=== PATIENT | female | born 1935 | race Caucasian/White ===

== ENCOUNTER 2016-04-13 18:10 | Emergency (ER) | payer MEDICARE ==
[~2016-04-13] VITALS: Ht 170.2 cm; Wt 79.5 kg
[~2016-04-13 18:10] MED LIST: ASPI81TA82 PO; FISH1000 PO; FOLI1TAB PO; IBAN150T3 PO; IMIT100T PO; MACR100C PO; METH2.5 PO; NAPR-576 PO; NEXI40CA PO; PRIN20TA2 PO; ROSU20 PO; SMZ-800T PO; VENL75TA91 PO; ZOFR4TAB3 SL
[2016-04-13 18:27] VITALS: BP 123/57; PULSE 86; RESP 18; TEMP 99; O2SAT 96
[2016-04-13] MEDS ORDERED: TRAM50TA PO (18:42)
[2016-04-13] MEDS ORDERED: MELO-1 PO (18:42)
[2016-04-13] MEDS ORDERED: DULO1CAP2 PO (18:42)
[2016-04-13] MEDS ORDERED: FOLI5CAP PO (18:42)
[2016-04-13] MEDS ORDERED: ASPI1TAB69 PO (18:42)
[2016-04-13] MEDS ORDERED: LISI-515 PO (18:42)
[2016-04-13] MEDS ORDERED: CLON0.5T PO (18:42)
[2016-04-13] MEDS ORDERED: METH2.5T PO (18:42)
[2016-04-13] MEDS ORDERED: SUMA100T2 PO (18:42)
[2016-04-13] MEDS ORDERED: HYDR-3133 PO (18:42)
[2016-04-13] MEDS ORDERED: PRAM0.25 PO (18:42)
[2016-04-13] MEDS ORDERED: SILV1CRE80 TOPICAL (19:05)
[2016-04-13] MEDS ORDERED: CEPH-460 PO (19:05)
--- NOTE | 2016-04-13 19:09 | PD ---
HPI Chief Complaint: Skin Problem Time Seen by Provider: 19:00 Travel History International Travel<30 days: No Contact w/Intl Traveler<30days: No Traveled to known affect area: No History of Present Illness HPI 81-year-old female with history of rheumatoid arthritis on methotrexate presents for evaluation of her chronic rash. Symptoms initially started 6 months ago on her upper back and forearms. She was seen by her primary care physician prescribed Bactroban. Symptoms persisted and 3 year 4 months ago she saw a top installer who prescribed her sober sulfadiazine. She has been using the silver sulfadiazine but symptoms have persisted which prompted evaluation. The rash is pruritic as well as uncomfortable. She has been scratching at it quite a bit and caused a large amount of excoriation of the skin on the forearms. She has not follow-up with her top installer yet. She has no other complaints at this time. PFSH Past Medical History Arthritis: Yes (RHEUMATOID) Blood Disorders: No Heart Rhythm Problems: No Cancer: No Cardiovascular Problems: Yes High Cholesterol: Yes Chest Pain: No Congestive Heart Failure: No Diminished Hearing: No Endocrine: No GERD: Yes Genitourinary: Yes Hepatitis: No Hiatal Hernia: No Hypertension: Yes Immune Disorder: Yes Musculoskeletal: Yes Neurologic: No Psychiatric: No Reproductive: No Respiratory: No Myocardial Infarction: No Ulcer: No Menopausal: Yes Past Surgical History Appendectomy: No Cardiac Surgery: No Cholecystectomy: No Endocrine Surgery: No Eye Surgery: No Genitourinary Surgery: No Gynecologic Surgery: Yes (PARTIAL HYSTERECTOMY ) Hysterectomy: Yes Neurologic Surgery: Yes (BACK SURGERY) Oral Surgery: Yes (TONSILECTOMY) Thoracic Surgery: No Tonsillectomy: Yes Social History Alcohol Use: No Tobacco Use: No Substance Use: No Allergies-Medications (Allergen,Severity, Reaction): Coded Allergies: No Known Allergies (Verified , 04/13/16) Reported Meds & Prescriptions Reported Meds & Active Scripts Active Silver Sulfadiazine Topical (Silver Sulfadiazine) 1 % Cream 1 Applic TOPICAL DAILY 10 Days Keflex (Cephalexin) 500 Mg Cap 500 Mg PO Q6H 10 Days Reported Aspirin 81 Mg Tabdr 81 Mg PO DAILY Sumatriptan (Sumatriptan Succinate) 100 Mg Tab 100 Mg PO ONCE PRN If a satisfactory response has not been obtained at 2 hours, a second dose may be administered Pramipexole (Pramipexole Dihydrochloride) 0.25 Mg Tab 0.25 Mg PO DAILY Meloxicam 15 Mg Tab 15 Mg PO DAILY Duloxetine DR (Duloxetine HCl) 30 Mg Capdr 30 Mg PO BID Tramadol (Tramadol HCl) 50 Mg Tab 50 Mg PO DAILY Folic Acid 5 Mg Cap 5 Mg PO DAILY Methotrexate 2.5 Mg Tab 7.5 Mg PO Q7D Clonazepam 0.5 Mg Tab 0.5 Mg PO BID PRN Hydroxyzine HCl 25 Mg Tab 25 Mg PO TID PRN Lisinopril 20 Mg Tab 20 Mg PO DAILY Review of Systems General / Constitutional: No: Fever, Chills Skin: Positive Rash, Positive Itching, Positive Other (redness, excoriation) Physical Exam Narrative GENERAL: Well-nourished female in no acute distress SKIN: Warm and dry. Skin excoriation noted on the dorsal forearms, upper back bilaterally. There is some honey-colored crusting impetigo formation on some of the areas of excoriation. Mild cellulitic changes. No papules, no pustules , no hives, no plaque lesions HEAD: Atraumatic. Normocephalic. EYES: Pupils equal and round. No scleral icterus. No injection or drainage. ENT: No nasal bleeding or discharge. Mucous membranes pink and moist. NECK: Trachea midline. No JVD. CARDIOVASCULAR: Regular rate and rhythm. No murmur appreciated. RESPIRATORY: No accessory muscle use. Clear to auscultation. Breath sounds equal bilaterally. Data Data Last Documented VS Vital Signs Date Time Temp Pulse Resp B/P Pulse Ox O2 Delivery O2 Flow Rate FiO2 04/13/16 18:27 99.0 86 18 123/57 96 MDM Medical Decision Making Medical Screen Exam Complete: Yes Emergency Medical Condition: Yes Medical Record Reviewed: Yes Differential Diagnosis Atopic dermatitis, psoriasis, contact dermatitis, impetigo, cellulitis Narrative Course 81-year-old female presents with chronic rash to the forearms and upper back, and improved despite the use of silver sulfadiazine cream. The rash is quite pruritic and on examination she has essentially skin excoriation with impetigo formation and mild cellulitic changes. Plan is to treat the patient with Keflex orally and topical silver sulfadiazine cream. Instructed her on the importance of not scratching at the rash and the follow up with her top installer likely for biopsy for definitive diagnosis. Diagnosis Primary Impression: Impetigo Additional Impression: Cellulitis Qualified Code: L03.119 - Cellulitis of upper extremity, unspecified laterality Additional Instructions: Medication as prescribed. Don't scratch at the rash. Follow up with a top installer for definitive diagnosis. Return for any emergent medical conditions. Med/Other Pt SpecificInfo: Prescription(s) given Scripts Silver Sulfadiazine Topical 1 % Cream1 Applic TOPICAL DAILY 10 Days Ref 0 Prov:Sorin Cespedes MD 04/13/16 Cephalexin (Keflex)500 Mg Gwu700 Mg PO Q6H 10 Days Ref 0 Prov:Sorin Cespedes MD 04/13/16 Disposition: 01 DISCHARGE HOME Condition: Stable Ronald Vázquez Apr 13, 2016 19:09
== END 2016-04-13 19:48 | disposition home or self-care (01) ==
LOC: PHEFT 18:10
DX: L01.00 Impetigo, unspecified (principal); L03.119 Cellulitis of unspecified part of limb
CPT/HCPCS: 99282

== ENCOUNTER → 2016-05-13 | Outpatient (CLI) | payer MEDICARE ==
[~2016-05-13] MED LIST changes: +ASPI1TAB69 PO; -ASPI81TA82 PO; +CEPH-460 PO; +CLON0.5T PO; +DULO1CAP2 PO; -FISH1000 PO; -FOLI1TAB PO; +FOLI5CAP PO; +HYDR-3133 PO; -IBAN150T3 PO; -IMIT100T PO; +LISI-515 PO; -MACR100C PO; +MELO-1 PO; -METH2.5 PO; +METH2.5T PO; -NAPR-576 PO; -NEXI40CA PO; +PRAM0.25 PO; -PRIN20TA2 PO; -ROSU20 PO; +SILV1CRE80 TOPICAL; -SMZ-800T PO; +SUMA100T2 PO; +TRAM50TA PO; -VENL75TA91 PO; -ZOFR4TAB3 SL
[2016-05-13 15:52] LABS: HEMATOCRIT 31.9 % (35.0-46.0); MEAN CORPUSCULAR HEMOGLOBIN 30.2 PG (27.0-34.0); MEAN CORPUSCULAR HGB CONC 33.2 % (32.0-36.0); PLATELET COUNT 145 TH/MM3 (150-450); RED BLOOD COUNT 3.51 MIL/MM3 (4.00-5.30); RED CELL DISTRIBUTION WIDTH 13.9 % (11.6-17.2); REVIEW FLAG FINAL
[2016-05-13 16:17] LABS: WESTERGREN SEDIMENTATION RATE 35 mm/hr (0-30)
[2016-05-13 16:18] LABS: RHEUMATOID FACTOR TRIGGER 19.6 IU/ML (0.0-14.9)
[2016-05-13 16:33] LABS: ALKALINE PHOSPHATASE 69 U/L (45-117); ALT (GPT) 23 U/L (10-53); ANION GAP 7 MEQ/L (5-15); AST (GOT) 20 U/L (15-37); BICARBONATE 26.6 MEQ/L (21.0-32.0); BLOOD UREA NITROGEN 17 MG/DL (7-18); CHLORIDE 108 MEQ/L (98-107); GLOMERULAR FILTRATION RATE 72 ML/MIN (>89); POTASSIUM 4.1 MEQ/L (3.5-5.1); SODIUM (NA) 142 MEQ/L (136-145); TOTAL BILIRUBIN ADULT 0.4 MG/DL (0.2-1.0)
== END ==
LOC: PLAB 12:39
PROVIDERS: ATTEND Internal Medicine Rheumatology
DX: E80.20 Unspecified porphyria (principal); M06.09 Rheumatoid arthritis without rheumatoid factor, multiple sites
CPT/HCPCS: 36415; 80053; 85027; 85652; 86430

== ENCOUNTER → 2016-06-10 | Outpatient (CLI) | payer MEDICARE ==
[2016-06-13 23:53] LABS: PORPHOBILINOGEN SCREEN (QUAL) 1.1 (<2.0)
== END ==
LOC: PLAB 10:41
PROVIDERS: ATTEND Specialist
DX: E80.20 Unspecified porphyria (principal)
CPT/HCPCS: 36415; 84110; 84311

== ENCOUNTER 2016-09-10 16:25 | Emergency (ER) | payer MEDICARE ==
[~2016-09-10] VITALS: Ht 167.6 cm; Wt 86.0 kg
[2016-09-10 16:29] VITALS: BP 143/65; PULSE 76; RESP 16; TEMP 76; TEMP 98.2; O2SAT 96
[2016-09-10] MEDS ORDERED: FOLI400T PO (16:47)
[2016-09-10] MEDS ORDERED: ASPI81TA11 PO (16:47)
[2016-09-10] MEDS ORDERED: NEXI20CA PO (16:49)
[2016-09-10] MEDS ORDERED: CYMB30CA PO (16:49)
[2016-09-10 17:00] VITALS: O2SAT 96
[2016-09-10] MEDS ORDERED: ONDANSETRON HCL 4 MG/2 ML VIAL IVP ONE (17:00)
[2016-09-10] MEDS ORDERED: SODIUM CHLORIDE 0.9% FLUSH 10 ML FLUSH IVF PRN (17:00)
[2016-09-10] MEDS ORDERED: MORPHINE SULFATE 4 MG/ML INJ IV ONE (17:00)
[2016-09-10 17:15] LABS: AUTOMATED NEUTROPHIL # 6.4 TH/MM3 (1.8-7.7); BASOPHIL % 0.2 % (0.0-2.0); EOSINOPHIL % 0.3 % (0.0-4.0); HEMO FLAGS DIFF FINAL; LYMPH % 15.6 % (9.0-44.0); LYMPHOCYTE # 1.2 TH/MM3 (1.0-4.8); MEAN CELL VOLUME 89.8 FL (80.0-100.0); MEAN CORPUSCULAR HEMOGLOBIN 29.5 PG (27.0-34.0); MEAN CORPUSCULAR HGB CONC 32.9 % (32.0-36.0); MONO % 4.3 % (0.0-8.0); NEUT % 79.6 % (16.0-70.0); PLATELET COUNT 154 TH/MM3 (150-450); RED BLOOD COUNT 3.67 MIL/MM3 (4.00-5.30); RED CELL DISTRIBUTION WIDTH 13.2 % (11.6-17.2); WHITE BLOOD COUNT 7.9 TH/MM3 (4.0-11.0)
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
[2016-09-10 17:23] LABS: POTASSIUM 3.6 MEQ/L (3.5-5.1)
[2016-09-10 17:26] LABS: BICARBONATE 33.1 MEQ/L (21.0-32.0)
[2016-09-10 17:28] LABS: APTT (PATIENT) 38.8 SEC (24.3-30.1); PROTHROMBIN TIME - PATIENT 11.4 SEC (9.8-11.6)
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
[2016-09-10] MEDS ORDERED: IOHEXOL 350 MG/ML 10 ML VIAL (for RAD DIAG) IV ONE (18:38)
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
[2016-09-10 18:39] VITALS: BP 129/58; PULSE 65; RESP 16; O2SAT 93
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
[2016-09-10] MEDS ORDERED: NORC5TAB PO (19:49)
[2016-09-10 19:50] VITALS: BP 128/64; PULSE 61; RESP 16; O2SAT 95
== END 2016-09-10 19:59 | disposition home or self-care (01) ==
LOC: PHED 16:25
DX: S22.049A Unspecified fracture of fourth thoracic vertebra, initial encounter for closed fracture (principal); M79.601 Pain in right arm; V89.2XXA Person injured in unspecified motor-vehicle accident, traffic, initial encounter
CPT/HCPCS: 70450; 70486; 71010; 71260; 72125; 72128; 72131; 72170; 74177; 80048; 85025; 85610; 85730; 96374; 96375; 99285; J2270; J2405; Q9967

== ENCOUNTER → 2016-10-07 | Outpatient (CLI) | payer MEDICARE ==
[~2016-10-07] MED LIST changes: -ASPI1TAB69 PO; +ASPI81TA11 PO; -CEPH-460 PO; +CYMB30CA PO; -DULO1CAP2 PO; +FOLI400T PO; -FOLI5CAP PO; +NEXI20CA PO; +NORC5TAB PO; +PERC5TAB12 PO; +ROSU1TAB6 PO; -SILV1CRE80 TOPICAL; +VENL75TA PO
[2016-10-07 16:11] LABS: HEMATOCRIT 31.1 % (35.0-46.0); MEAN CORPUSCULAR HEMOGLOBIN 30.2 PG (27.0-34.0); MEAN CORPUSCULAR HGB CONC 32.8 % (32.0-36.0); PLATELET COUNT 131 TH/MM3 (150-450); RED BLOOD COUNT 3.39 MIL/MM3 (4.00-5.30); RED CELL DISTRIBUTION WIDTH 14.3 % (11.6-17.2); REVIEW FLAG FINAL; WHITE BLOOD COUNT 4.2 TH/MM3 (4.0-11.0)
[2016-10-07 16:25] LABS: ANION GAP 8 MEQ/L (5-15); AST (GOT) 20 U/L (15-37); BICARBONATE 33.3 MEQ/L (21.0-32.0); BLOOD UREA NITROGEN 12 MG/DL (7-18); CHLORIDE 104 MEQ/L (98-107); GLOMERULAR FILTRATION RATE 58 ML/MIN (>89); POTASSIUM 3.4 MEQ/L (3.5-5.1); SODIUM (NA) 145 MEQ/L (136-145)
[2016-10-07 16:29] LABS: ALKALINE PHOSPHATASE 78 U/L (45-117); ALT (GPT) 24 U/L (10-53); TOTAL BILIRUBIN ADULT 0.5 MG/DL (0.2-1.0)
[2016-10-07 16:54] LABS: WESTERGREN SEDIMENTATION RATE 25 mm/hr (0-30)
== END ==
LOC: PLAB 11:49
PROVIDERS: ATTEND Internal Medicine Rheumatology
DX: M06.09 Rheumatoid arthritis without rheumatoid factor, multiple sites (principal)
CPT/HCPCS: 36415; 80053; 85027; 85652; 86140

== ENCOUNTER 2016-11-24 07:46 | Emergency (ER) | payer MEDICARE ==
[~2016-11-24] VITALS: Ht 170.2 cm; Wt 81.0 kg
[~2016-11-24 07:46] MED LIST changes: -PERC5TAB12 PO; -ROSU1TAB6 PO; -VENL75TA PO
[2016-11-24 07:53] VITALS: BP 152/82; PULSE 82; RESP 18; TEMP 98.1; O2SAT 100
[2016-11-24] MEDS ORDERED: ROSU1TAB6 PO (08:08)
[2016-11-24] MEDS ORDERED: VENL75TA PO (08:08)
[2016-11-24] MEDS ORDERED: KETOROLAC TROMETHAMINE 60 MG/2 ML (IM) VIAL IM ONE (08:15)
[2016-11-24] MEDS ORDERED: ORPHENADRINE INJ 60 MG/2 ML AMP IM ONE (08:15)
--- NOTE | 2016-11-24 08:18 | PD ---
HPI Chief Complaint: Pain: Acute or Chronic Time Seen by Provider: 08:01 Travel History International Travel<30 days: No Contact w/Intl Traveler<30days: No Traveled to known affect area: No History of Present Illness HPI 81-year-old female presents with low back pain that is going down her left leg. She states over the past 2 days she's felt tingling in her left foot. She states that the pain is been progressively worse over the past couple of weeks. She states she had surgery in her back in the 70s. She denies any incontinence, fever, abdominal pain or other concurrent complaints. Quality of pain is sharp. Severity severe per patient. Pain is worse with movement. She denies other specific modifying factors. PFSH Past Medical History Anemia: Yes Arthritis: Yes (RHEUMATOID) Blood Disorders: No Heart Rhythm Problems: No Cancer: No Cardiovascular Problems: Yes High Cholesterol: Yes Chest Pain: No Congestive Heart Failure: No Diminished Hearing: No Endocrine: No Gastrointestinal Disorders: Yes GERD: Yes Genitourinary: Yes Hepatitis: No Hiatal Hernia: No Hypertension: Yes Immune Disorder: Yes Musculoskeletal: Yes Neurologic: No Psychiatric: No Reproductive: No Respiratory: No Myocardial Infarction: No Ulcer: No Influenza Vaccination: No ?: Not Menopausal: Yes Past Surgical History Appendectomy: No Cardiac Surgery: No Cholecystectomy: No Endocrine Surgery: No Eye Surgery: No Genitourinary Surgery: No Gynecologic Surgery: Yes (PARTIAL HYSTERECTOMY ) Hysterectomy: Yes Neurologic Surgery: Yes (BACK SURGERY) Oral Surgery: Yes (TONSILECTOMY) Thoracic Surgery: No Tonsillectomy: Yes Social History Alcohol Use: Yes (~1 XWEEK) Tobacco Use: No Substance Use: No Allergies-Medications (Allergen,Severity, Reaction): Coded Allergies: No Known Allergies (Verified , 11/24/16) Reported Meds & Prescriptions Reported Meds & Active Scripts Active Percocet (Oxycodone-Acetaminophen) 5-325 mg Tab 1 Tab PO Q6H PRN Reported Effexor (Venlafaxine HCl) 75 Mg Tab 75 Mg PO DAILY Rosuvastatin (Rosuvastatin Calcium) 10 Mg Tab 10 Mg PO HS Nexium (Esomeprazole DR) 20 Mg Capdr 20 Mg PO DAILY Folic Acid 400 Mcg Tab Unknown Dose PO DAILY Aspirin EC (Aspirin) 81 Mg Tabdr 81 Mg PO DAILY Sumatriptan (Sumatriptan Succinate) 100 Mg Tab 100 Mg PO ONCE PRN If a satisfactory response has not been obtained at 2 hours, a second dose may be administered Pramipexole (Pramipexole Dihydrochloride) 0.25 Mg Tab 0.25 Mg PO DAILY Meloxicam 15 Mg Tab 15 Mg PO DAILY Tramadol (Tramadol HCl) 50 Mg Tab 50 Mg PO DAILY Methotrexate 2.5 Mg Tab 7.5 Mg PO Q7D Clonazepam 0.5 Mg Tab 0.5 Mg PO BID PRN Hydroxyzine HCl 25 Mg Tab 25 Mg PO TID PRN Lisinopril 20 Mg Tab 20 Mg PO DAILY Review of Systems Except as stated in HPI: all other systems reviewed are Neg Physical Exam Narrative GENERAL: Well-nourished, well-developed patient. SKIN: Warm and dry. HEAD: Normocephalic and atraumatic. EYES: No injection or drainage. ENT: No nasal drainage noted. NECK: Supple, trachea midline. CARDIOVASCULAR: Regular rate and rhythm RESPIRATORY: Breath sounds equal bilaterally. No accessory muscle use. GASTROINTESTINAL: Abdomen soft, non-tender, nondistended. EXTREMITIES: No edema. BACK: Tender to lower lumbar spine without step-off, surgical scar noted NEUROLOGICAL: Awake and alert. Patient has significant pain straightening out her right leg, 5 out of 5 in all lower extremities, notes decreased sensation over left lower foot. Normal speech. Data Data Last Documented VS Vital Signs Date Time Temp Pulse Resp B/P (MAP) Pulse Ox O2 Delivery O2 Flow Rate FiO2 11/24/16 13:09 11/24/16 12:40 16 11/24/16 12:40 97.5 67 99 Room Air Orders Orders Orphenadrine Inj (Norflex Inj) (11/24/16 08:15) Ketorolac Inj (Toradol Inj) (11/24/16 08:15) Mri L Spine W/O Contrast (11/24/16 ) Ed Discharge Order (11/24/16 12:03) Morphine Inj (Morphine Inj) (11/24/16 12:30) MDM Medical Decision Making Medical Screen Exam Complete: Yes Emergency Medical Condition: Yes Medical Record Reviewed: Yes (past history confirmed) Interpretation(s) Last 24 hours Impressions Lumbar Spine MRI 11/24/16 0000 Signed Impressions: Service Date/Time: Thursday, November 24, 2016 10:51 - CONCLUSION: 1. Acute compression fracture involving L5 with 20-30%% loss of height and no retropulsion. This is a new finding from the September 10, 2016 study. 2. Multilevel degenerative changes including areas of significant central canal stenosis particularly at L1-L2, L2-L3, and L3-L4. Saturnino Gallegos Jr., MD Differential Diagnosis Spinal stenosis, disc bulging, fracture, arthritis Narrative Course Given new symptoms of numbness and foot and progressive pain with recent imaging showing bulging disc and spinal stenosis Will check MRI and dose with Norflex and Toradol as patient is requesting something to help her muscles relax Patient states her prior surgery was with Dr. Lopez, will talk with their office in regards to acute compression fracture for follow-up Patient denies any new complaints and states that they are feeling better after morphine. Patient happy with care, all questions answered. Patient knows that follow up is incumbent on them and to return to the emergency room immediately if new or worsening symptoms develop. Patient given strict return precautions, vitals reviewed and are normal, agrees to further workup as an outpatient. Diagnosis Primary Impression: Compression fracture of fifth lumbar vertebra Qualified Codes: S32.050A - Wedge compression fracture of fifth lumbar vertebra, initial encounter for closed fracture Referrals: Ulysses Mckinney MD call for appointment Patient Instructions: General Instructions Additional Instructions: return as needed, don't take medication while driving, wear brace as directed Med/Other Pt SpecificInfo: Prescription(s) given Scripts Oxycodone-Acetaminophen (Percocet) 5-325 mg Tab 1 TAB PO Q6H Y for PAIN, #15 TAB 0 Refills Prov: Dana Hernandes MD 11/24/16 Disposition: 01 DISCHARGE HOME Condition: Stable Dana Hernandes MD Nov 24, 2016 08:18
[2016-11-24 10:06] VITALS: BP 178/83; PULSE 61; RESP 18; O2SAT 97
[2016-11-24 11:23] VITALS: BP 164/78; PULSE 87; RESP 18; O2SAT 98
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
[2016-11-24] MEDS ORDERED: PERC5TAB12 PO (12:02)
[2016-11-24] MEDS ORDERED: MORPHINE SULFATE 4 MG/ML INJ IM ONE (12:30)
[2016-11-24 12:40] VITALS: BP 151/70; PULSE 67; RESP 16; TEMP 97.5; O2SAT 99
== END 2016-11-24 13:12 | disposition home or self-care (01) ==
LOC: PHED 07:46
DX: S32.050A Wedge compression fracture of fifth lumbar vertebra, initial encounter for closed fracture (principal); M54.5 Low back pain; D64.9 Anemia, unspecified; E78.5 Hyperlipidemia, unspecified; K21.9 Gastro-esophageal reflux disease without esophagitis; I10 Essential (primary) hypertension; Z79.899 Other long term (current) drug therapy; Z79.82 Long term (current) use of aspirin; X58.XXXA Exposure to other specified factors, initial encounter
CPT/HCPCS: 72148; 96372; 99285; J1885; J2270; J2360; L0627

== ENCOUNTER → 2017-02-03 | Outpatient (CLI) | payer MEDICARE ==
[~2017-02-03] MED LIST changes: -ASPI81TA11 PO; +ASPI81TA23 PO; -CYMB30CA PO; +DOCU1CAP39 PO; +DULO1CAP2 PO; +HYDR-3583 PO; -MELO-1 PO; +MELO15TA20 PO; +METH500T3 PO; -NORC5TAB PO; +OXYC-432 PO; +PERC5TAB12 PO; +ROSU1TAB6 PO; +VENL75TA PO
[2017-02-03 10:04] LABS: HEMATOCRIT 34.4 % (35.0-46.0); HEMOGLOBIN 11.2 GM/DL (11.6-15.3); MEAN CELL VOLUME 93.9 FL (80.0-100.0); MEAN CORPUSCULAR HEMOGLOBIN 30.5 PG (27.0-34.0); MEAN CORPUSCULAR HGB CONC 32.5 % (32.0-36.0); MEAN PLATELET VOLUME 8.2 FL (7.0-11.0); PLATELET COUNT 167 TH/MM3 (150-450); RED BLOOD COUNT 3.67 MIL/MM3 (4.00-5.30); WHITE BLOOD COUNT 7.9 TH/MM3 (4.0-11.0)
[2017-02-03 10:17] LABS: INTERNATIONAL NORMALIZED RATIO 1.1 RATIO; PROTHROMBIN TIME - PATIENT 10.7 SEC (9.8-11.6)
[2017-02-03 10:28] LABS: BICARBONATE 30.3 MEQ/L (21.0-32.0); CALCIUM 8.8 MG/DL (8.5-10.1); CREATININE 0.89 MG/DL (0.50-1.00)
--- NOTE | 2017-02-03 11:50 | RADRPT ---
EXAM DATE/TIME: 02/03/2017 11:02 [facility] COMPARISON: No previous studies available for comparison. INDICATIONS : Evaluate for pneumonia, pneumothorax or communicable disease. Pre-op, laminectomy. MEDICAL HISTORY : Hypertension. SURGICAL HISTORY : Fusion, lumbar. Hysterectomy. ENCOUNTER: Initial ACUITY: 1 day PAIN SCORE: 0/10 LOCATION: Bilateral chest FINDINGS: PA and lateral views of the chest demonstrate the lungs to be symmetrically aerated without evidence of mass, infiltrate or effusion. The cardiomediastinal contours are unremarkable. Osseous structure s are intact. CONCLUSION: No acute disease. Joo Ochoa MD on February 03, 2017 at 11:48 Board Certified Radiologist. This report was verified electronically.
--- NOTE | 2017-02-03 13:46 | EKG ---
Date Performed: 02/03/2017 Time Performed: 09:57:16 PTAGE: 81 years EKG: Sinus rhythm Lateral T wave changes are nonspecific Borderline ECG PREVIOUS TRACING : 01/12/2014 18.34 DOCTOR: Meño Powell Interpretating Date/Time 02/03/2017 13:44:08
== END ==
LOC: CPRE 09:15
PROVIDERS: ATTEND Neurological Surgery
DX: Z01.812 Encounter for preprocedural laboratory examination (principal); Z01.811 Encounter for preprocedural respiratory examination; Z01.810 Encounter for preprocedural cardiovascular examination; M79.609 Pain in unspecified limb; I10 Essential (primary) hypertension; R94.31 Abnormal electrocardiogram [ECG] [EKG]
CPT/HCPCS: 36415; 71020; 80048; 85027; 85610; 85730; 93005

== ENCOUNTER 2017-02-09 10:51 | Observation (INO) | payer MEDICARE ==
[~2017-02-09] VITALS: Ht 168.9 cm; Wt 81.6 kg
[~2017-02-09 10:51] MED LIST changes: -DOCU1CAP39 PO; -HYDR-3583 PO; -METH500T3 PO; -OXYC-432 PO; -PERC5TAB12 PO; -VENL75TA PO
[2017-02-09] MEDS ORDERED: LACTATED RINGER'S 1000 ML IV PRN (11:30)
[2017-02-09] MEDS ORDERED: POVIDONE IODINE 5% (ANTISEPSIS KIT) 4 APPLICATIONS EACH NARE PRN (11:30)
[2017-02-09] MEDS ORDERED: METOPROLOL TARTRATE 25 MG TAB PO PRN (11:30)
[2017-02-09] MEDS ORDERED: SODIUM CHLORID 0.9% 500 ML IV PRN (11:30)
[2017-02-09] MEDS ORDERED: CHLORHEXIDINE GLUCONATE 2 % 1 PACK (2 CLOTHS) TOPICAL PRN (11:30)
[2017-02-09] MEDS ORDERED: ceFAZolin 1,000 MG/NS 100 ML IV SCH ×2 (11:45)
[2017-02-09] MEDS ORDERED: LACTATED RINGER'S 1000 ML INJ 1,000 ML IV SCH (12:00)
[2017-02-09] MEDS ORDERED: THROMBIN (TOPICAL) 5,000 UNIT VIAL ONE (13:07)
[2017-02-09] MEDS ORDERED: GELFOAM SIZE 100 ONE (13:07)
[2017-02-09] MEDS ORDERED: GENTAMICIN SULFATE 80 MG/2 ML VIAL ONE (13:07)
[2017-02-09] MEDS ORDERED: LIDOCAINE 1%/EPINEPHrine 1:100,000 SOLN 20 ML VIAL ONE (13:08)
[2017-02-09] MEDS ORDERED: BUPIVACAINE LIPOSOME PF 1.3% 20 ML VIAL ONE (13:19)
[2017-02-09] MEDS ORDERED: ACETAMINOPHEN 1000 MG/100 ML 100 ML IV ONE (13:24)
[2017-02-09] MEDS ORDERED: APREPITANT 40 MG CAP ONE (13:52)
[2017-02-09] MEDS ORDERED: MIDAZOLAM HCL 2 MG/2 ML VIAL ONE (15:11)
[2017-02-09] MEDS ORDERED: BUPIVACAINE LIPOSOME PF 1.3% 20 ML VIAL INFIL ONE (15:51)
[2017-02-09] MEDS ORDERED: *morphine SULFATE 8 MG/ML PERIprocedure ONLY ONE (18:28)
[2017-02-09] MEDS ORDERED: *morphine SULFATE 10 MG/ML PERIprocedure ONLY ONE (18:45)
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
[2017-02-09] MEDS ORDERED: DO NOT ADM ANY ANTICOAGULANT DRUGS PRN (19:00)
[2017-02-09 20:15] VITALS: BP 99/51; PULSE 79; RESP 20; TEMP 97.3; O2SAT 92
[2017-02-09] MEDS ORDERED: ACETAMINOPHEN/HYDROcodone 325 MG/5 MG TAB PO PRN (21:00)
[2017-02-09] MEDS ORDERED: 1/2 NS + KCL 20 MEQ INJ 1,000 ML IV SCH (21:00)
[2017-02-09] MEDS ORDERED: DOCUSATE SODIUM 100 MG CAP PO SCH (21:00)
[2017-02-09] MEDS ORDERED: ONDANSETRON HCL 4 MG/2 ML VIAL IV PUSH PRN (21:00)
[2017-02-09] MEDS ORDERED: NALOXONE HCL 0.4 MG/ML AMP IV PUSH PRN (21:00)
[2017-02-09] MEDS ORDERED: ACETAMINOPHEN/HYDROcodone 325 MG/10 MG TAB PO PRN (21:00)
--- NOTE | 2017-02-09 21:06 | PD.OP ---
Operative Report Date of Surgery: Feb 09, 2017 Preoperative Diagnosis: (1) Lumbar stenosis with neurogenic claudication (2) Lumbar radiculopathy 1. Severe L2-3 and L3 4 canal and lateral recess stenosis 2. Lumbar neurogenic claudication 3. Lumbar radiculopathy Postoperative Diagnosis: (1) Lumbar stenosis with neurogenic claudication (2) Lumbar radiculopathy 1. Severe L2-3 and L3 4 canal and lateral recess stenosis 2. Lumbar neurogenic claudication 3. Lumbar radiculopathy Procedure: 1. Bilateral L2-3 and L3 4 decompressive semi-hemilaminectomy, medial facetectomy-microtechnique Anesthesia: Gen. Surgeon: Arjun Padilla Hose Operator(s): Carito Carranza Operation and Findings: Findings: Severe ligamentous and facet hypertrophy at the bilateral L2 3 and L3 4 level with significant thecal sac and exiting nerve root compression. Procedure in detail: The patient was brought into the operating room and general endotracheal anesthesia induced without difficulty. THEE hose and sequential compression devices were placed. The Ashley catheter was placed. Lines were established by anesthesia. Leads for intraoperative neuro monitoring were placed and a baseline study obtained. The patient was positioned on the concentric Jovi table with the side bolsters and all extremities appropriately padded. Appropriate time-out procedure was performed with all personnel present and in agreement. 1% Xylocaine with epinephrine was used for local infiltration over the incision site which was made at the midline L2-L4 level. The incision was carried sharply down to the lumbodorsal fascia which was incised adjacent to the spinous processes at the left L2-L4 level. Iglesias elevator was used for subperiosteal elevation of paraspinous musculature and fascia away from the lamina and spinous process at the left L2-L4 level. The deep self-retaining retractor was placed. The appropriate levels were verified with intraoperative C-arm. Microscope was moved into place and used for the remainder of the procedure including the closure. At each level starting on the left side and then working across the midline to the opposite side, the TPS drill with a 5 mm bone bur followed by the 4 mm dayday bur was used to remove the inferior two thirds of the more cephalad lamina and the superior aspect of the more caudal lamina along with a moderate amount of the bilateral medial facet, taking care not to disrupt the integrity of the facet or pars intra-articularis. The hypertrophied ligamentum flavum at each level was elevated away from the thecal sac with the thin ligament dissector and resected with the 15 blade knife and the Kerrison rongeur out to the level of the deep lateral recess to completely decompress the thecal sac and exiting nerve roots. The exiting nerve roots were followed to the level of the medial pedicle to ensure that they were well decompressed. At each level on each side, the superior aspect of the more inferior facet along with hypertrophied ligament at the medial foramen were removed with the Kerrison rongeur to perform the bilateral foraminotomy. The nerve roots appeared well decompressed at the end of the procedure. No spinal fluid leakage was encountered. The disc and annulus at each level was visualized to make sure that there was no significant disc displacement or herniation. Bleeding was carefully controlled with the bipolar forceps. A 7 mm flat fluted drain was left in place at the operative site and brought out through an incision in the mid lumbar region and secured to the skin with nylon suture and attached to a bulb suction. The closure was performed with 0 Vicryl interrupted for the deep and superficial fascia, with 3-0 Vicryl interrupted subcutaneous closure, and 4-0 Vicryl running subcuticular closure. A dressing of sterile Mastisol, Steri- Strips, and Primapore was placed. The patient was taken to recovery room in stable condition. All counts were correct at the end of the case. Estimated blood loss was 100 cc. No specimen was sent to pathology Arjun Padilla MD Feb 09, 2017 21:06
[2017-02-09] MEDS ORDERED: MORPHINE SULFATE 2 MG/ML INJ IV PRN (21:15)
[2017-02-10] VITALS (7 sets, daily range): BP systolic 98–113; BP diastolic 43–58; PULSE 81–95; RESP 17–20; TEMP 96–98.8; O2SAT 94–98
[2017-02-10 05:49] LABS: AUTOMATED NEUTROPHIL # 7.5 TH/MM3 (1.8-7.7); BASOPHIL % 0.1 % (0.0-2.0); HEMATOCRIT 26.8 % (35.0-46.0); HEMOGLOBIN 9.2 GM/DL (11.6-15.3); LYMPH % 5.7 % (9.0-44.0); LYMPHOCYTE # 0.5 TH/MM3 (1.0-4.8); MEAN CELL VOLUME 93.6 FL (80.0-100.0); MEAN CORPUSCULAR HEMOGLOBIN 32.2 PG (27.0-34.0); MEAN CORPUSCULAR HGB CONC 34.4 % (32.0-36.0); MEAN PLATELET VOLUME 8.7 FL (7.0-11.0); MONO % 1.9 % (0.0-8.0); MONOCYTE # 0.2 TH/MM3 (0-0.9); NEUT % 92.3 % (16.0-70.0); PLATELET COUNT 147 TH/MM3 (150-450); RED BLOOD COUNT 2.87 MIL/MM3 (4.00-5.30); RED CELL DISTRIBUTION WIDTH 15.8 % (11.6-17.2); WHITE BLOOD COUNT 8.1 TH/MM3 (4.0-11.0)
[2017-02-10 06:06] LABS: BICARBONATE 29.3 MEQ/L (21.0-32.0); CALCIUM 8.2 MG/DL (8.5-10.1); CREATININE 1.03 MG/DL (0.50-1.00)
[2017-02-10] MEDS: METHOCARBAMOL 500 MG TAB PO PRN ×2 (08:50→17:52)
[2017-02-10] MEDS ORDERED: PANTOPRAZOLE SOD 40 MG DELAYED RELEASE TAB PO SCH (09:00)
[2017-02-10] MEDS ORDERED: HYDR-3583 PO (14:53)
[2017-02-10] MEDS ORDERED: DOCU1CAP39 PO (14:56)
[2017-02-10] MEDS ORDERED: METH500T3 PO (14:56)
--- NOTE | 2017-02-10 15:27 | HHI.DCPOC ---
Discharge Care Plan Your Health Problems Are: Incision/Drains Exercise Tolerance Goals to Promote Your Health * To prevent worsening of your condition and complications * To maintain your health at the optimal level No lifting, bending, pushing, pulling or other strenuous activity. Leave the dressing on over the surgical incisions for 1 week. After that you may take the outer dressing off but leave the steri-strips on and let them fall off on their own. No showering until the surgical incision is totally healed. Take the pain medication as prescribed. Avoid taking any medication that contains aspirin or NSAIDs (ibuprofen, naproxen , Motrin, Advil, Naprosyn) for at least a month. Avoid taking any statin cholesterol medication for the next month. Follow up in the office in 2 weeks for a wound check. Directions to Meet Your Goals Take your medications as prescribed Follow your dietary instruction Follow activity as directed No lifting, bending, pushing, pulling or other strenuous activity. Leave the dressing on over the surgical incisions for 1 week. After that you may take the outer dressing off but leave the steri-strips on and let them fall off on their own. No showering until the surgical incision is totally healed. Take the pain medication as prescribed. Avoid taking any medication that contains aspirin or NSAIDs (ibuprofen, naproxen , Motrin, Advil, Naprosyn) for at least a month. Avoid taking any statin cholesterol medication for the next month. Follow up in the office in 2 weeks for a wound check. Keep your appointments as scheduled Take your immunizations and boosters as scheduled If your symptoms worsen call your PCP, if no PCP go to Urgent Care Center or Emergency Room Smoking is Dangerous to Your Health. Avoid second hand smoke Call the 24-hour hour crisis hotline for domestic abuse at [facility] Feb 10, 2017 15:27 Arjun Padilla MD Feb 12, 2017 20:24
--- NOTE | 2017-02-10 15:29 | HHI.DS ---
[facility] 02/10/17 1529: Discharge Summary Admission Date Feb 09, 2017 at 20:25 Discharge Date: Feb 10, 2017 Admitting Diagnosis (1) Lumbar stenosis with neurogenic claudication Diagnosis: Principal ICD Code: M48.062 - Spinal stenosis, lumbar region with neurogenic claudication (2) Lumbar radiculopathy Diagnosis: Secondary ICD Code: M54.16 - Radiculopathy, lumbar region (3) S/P lumbar laminectomy Diagnosis: Secondary ICD Code: Z98.890 - Other specified postprocedural states CBC/BMP: 02/10/17 0436 02/10/17 0436 Significant Findings Laboratory Tests Test 02/10/17 04:36 Red Blood Count 2.87 MIL/MM3 (4.00-5.30) Hemoglobin 9.2 GM/DL (11.6-15.3) Hematocrit 26.8 % (35.0-46.0) Platelet Count 147 TH/MM3 (150-450) Neutrophils (%) (Auto) 92.3 % (16.0-70.0) Lymphocytes (%) (Auto) 5.7 % (9.0-44.0) Lymphocytes # (Auto) 0.5 TH/MM3 (1.0-4.8) Blood Urea Nitrogen 19 MG/DL (7-18) Creatinine 1.03 MG/DL (0.50-1.00) Random Glucose 148 MG/DL (74-106) Calcium Level 8.2 MG/DL (8.5-10.1) Estimat Glomerular Filtration Rate 52 ML/MIN (>89) Hospital Course 02/09: The patient presented to [facility] to have a bilateral L2-3 and L3 4 decompressive semi-hemilaminectomy. Post-operatively the patient was admitted to a regular med/surg floor. 02/10: When seen this afternoon the patient is doing well. She was ambulating in the room on her own with a wheeled walker. She says her back is sore/aching. She denies any pain or numbness to the lower extremities but did have some tingling to the feet this morning which has resolved. She has no other complaints. Physical Therapy evaluated the patient and felt that she was able to be discharged home without any skilled needs. Pt Condition on Discharge: Good Discharge Disposition: Discharge Home Discharge Instructions DIET: Follow Instructions for: As Tolerated, No Restrictions ACTIVITIES You can perform: Weight Bearing As Trevor Activities to Avoid: Lifting/Bending, Strenuous Activity, Bathing, Shower ADDITIONAL Activity Instructio: No lifting, bending, pushing, pulling or other strenuous activity. Leave the dressing on over the surgical incisions for 1 week. After that you may take the outer dressing off but leave the steri-strips on and let them fall off on their own. No showering until the surgical incision is totally healed. Additional Information Leave the dressing on over the surgical incisions for 1 week. After that you may take the outer dressing off but leave the steri-strips on and let them fall off on their own. No showering until the surgical incision is totally healed. Take the pain medication as prescribed. Avoid taking any medication that contains aspirin or NSAIDs (ibuprofen, naproxen , Motrin, Advil, Naprosyn) for at least a month. Avoid taking any statin cholesterol medication for the next month. Follow up in the office in 2 weeks for a wound check. Arjun Padilla MD 02/12/172023: Discharge Summary CBC/BMP: 02/10/17 0436 02/10/17435 [facility] Feb 10, 2017 15:29 Arjun Padilla MD Feb 12, 2017 20:24
--- NOTE | 2017-02-10 15:49 | HHI.NSPN ---
([facility]) History Chief Complaint: Back is sore. ([facility]) Interval History 02/09: The patient presented to [facility] to have a bilateral L2-3 and L3 4 decompressive semi-hemilaminectomy. Post-operatively the patient was admitted to a regular med/surg floor. 02/10: When seen this afternoon the patient is doing well. She was ambulating in the room on her own with a wheeled walker. She says her back is sore/aching. She denies any pain or numbness to the lower extremities but did have some tingling to the feet this morning which has resolved. She has no other complaints. Physical Therapy evaluated the patient and felt that she was able to be discharged home without any skilled needs. ([facility]) Exam Results 02/08/17 02/08/17 02/09/17 02/09/17 02/10/17 02/10/17 06:00 18:00 06:00 18:00 06:00 18:00 Intake Total 1800 ml 320 ml Output Total 450 ml 300 ml Balance 1350 ml 20 ml Intake Oral 120 ml IV Total 200 ml Other 1800 ml Output Urine Total 350 ml 250 ml Drainage Total 50 ml Estimated Blood Loss 100 ml # Voids 1 # Bowel Movements 0 Vital Signs Date Time Temp Pulse Resp B/P (MAP) Pulse Ox O2 Delivery O2 Flow Rate FiO2 02/10/17 12:00 98.8 84 17 111/43 (65) 98 02/10/17 09:39 98 02/10/17 08:00 96.3 92 18 110/58 (75) 95 02/10/17 04:00 97.0 89 20 98/49 (65) 94 02/10/17 02:53 95 02/10/17 00:00 97.6 95 20 113/53 (73) 94 02/09/17 20:15 97.3 79 20 99/51 (67) 92 02/09/17 20:00 74 16 100/51 (67) 95 Room Air 02/09/17 19:45 74 12 106/48 (67) 94 Room Air 02/09/17 19:30 81 14 101/52 (68) 99 Room Air 02/09/17 19:15 69 15 100/50 (67) 100 Nasal Cannula 2 02/09/17 19:00 70 15 102/52 (69) 100 Nasal Cannula 2 02/09/17 18:45 76 15 113/60 (77) 100 Nasal Cannula 2 02/09/17 18:30 79 14 111/56 (74) 100 Nasal Cannula 2 02/09/17 18:17 97.9 92 14 129/60 (83) 100 Nasal Cannula 2 02/09/17 18:06 98.6 95 20 115/74 (88) 96 Room Air 02/09/17 11:15 98.0 84 20 116/64 (81) 99 ([facility]) Physical Examination GENERAL: Awake & alert, ambulating in room on own. Readily interacts. Normal affect. No apparent distress. HEENT: Normocephalic, atraumatic. RESPIRATORY: CTAB w/o W/R/R, equal excursion, nonlaboured, on RA. CARDIOVASCULAR: S1S2 w/RRR w/o M/G/R. GASTROINTESTINAL: Abdomen soft, nontender, positive bowel sounds. MUSCULOSKELETAL: VALDIVIA spontaneously, NTTP. Multiple skin tears to all extremities in various stages of healing. Surgical incisions to lumbar spine NTTP, dressings dry & intact w/o any evidence of drainage, erythema or streaking. NEUROLOGICAL: AAOx3. Speech clear & appropriate. Follows simple commands. Sensation is intact to light touch to all extremities. Motor strength is 5/5 to all major flexion & extension muscle groups to the extremities. ([facility]) Lab, Micro, Other Results Recent Impressions Lumbar Spine X-Ray 02/09/17 0000 Signed Impressions: Service Date/Time: Thursday, February 09, 2017 15:05 - CONCLUSION: Lateral fluoroscopic image demonstrates temporary probe at L4 level posteriorly.. Derrell Muse MD Laboratory Tests Test 02/10/17 04:36 White Blood Count 8.1 TH/MM3 Red Blood Count 2.87 MIL/MM3 Hemoglobin 9.2 GM/DL Hematocrit 26.8 % Mean Corpuscular Volume 93.6 FL Mean Corpuscular Hemoglobin 32.2 PG Mean Corpuscular Hemoglobin Concent 34.4 % Red Cell Distribution Width 15.8 % Platelet Count 147 TH/MM3 Mean Platelet Volume 8.7 FL Neutrophils (%) (Auto) 92.3 % Lymphocytes (%) (Auto) 5.7 % Monocytes (%) (Auto) 1.9 % Eosinophils (%) (Auto) 0.0 % Basophils (%) (Auto) 0.1 % Neutrophils # (Auto) 7.5 TH/MM3 Lymphocytes # (Auto) 0.5 TH/MM3 Monocytes # (Auto) 0.2 TH/MM3 Eosinophils # (Auto) 0.0 TH/MM3 Basophils # (Auto) 0.0 TH/MM3 CBC Comment DIFF FINAL Differential Comment Blood Urea Nitrogen 19 MG/DL Creatinine 1.03 MG/DL Random Glucose 148 MG/DL Calcium Level 8.2 MG/DL Sodium Level 139 MEQ/L Potassium Level 4.4 MEQ/L Chloride Level 103 MEQ/L Carbon Dioxide Level 29.3 MEQ/L Anion Gap 7 MEQ/L Estimat Glomerular Filtration Rate 52 ML/MIN ([facility]) Medical Decision Making Impression and Plan Impression: Preoperative Diagnosis: (1) Lumbar stenosis with neurogenic claudication (2) Lumbar radiculopathy 1. Severe L2-3 and L3 4 canal and lateral recess stenosis 2. Lumbar neurogenic claudication 3. Lumbar radiculopathy The patient is doing well post-operatively and is neurologically intact. Reviewed labs for today. Anaemia. Thrombocytopenia. Decreased renal function. ADAIR drain output 50 mL since surgery as of this morning. POD #1 () s/p: 1. Bilateral L2-3 and L3 4 decompressive semi-hemilaminectomy, medial facetectomy-microtechnique Postoperative Diagnosis: (1) Lumbar stenosis with neurogenic claudication (2) Lumbar radiculopathy 1. Severe L2-3 and L3 4 canal and lateral recess stenosis 2. Lumbar neurogenic claudication 3. Lumbar radiculopathy Plan: D/C ADAIR drain. D/C Ashley catheter. Will discharge patient home. ([facility]) Attending Statement The exam, history, and the medical decision-making described in the above note were completed with the assistance of the mid-level provider. I reviewed and agree with the findings presented. I attest that I had a [id number] encounter with the patient on the same day, and personally performed and documented my assessment and findings in the medical record. Stable post op for D/C home. Instructions given (Arjun Padilla MD) [facility] Feb 10, 2017 15:49 Arjun Padilla MD Feb 12, 2017 20:24
== END 2017-02-10 18:08 | disposition home or self-care (01) ==
LOC: HSDC 10:51 → N06B 20:25
PROVIDERS: ADMIT Neurological Surgery; ATTEND Neurological Surgery
DX: M48.062 Spinal stenosis, lumbar region with neurogenic claudication (principal); M54.16 Radiculopathy, lumbar region; R20.2 Paresthesia of skin
CPT/HCPCS: 00630; 63030; 63035; 72020; 76000; 80048; 85025; 94150; 97163; C9290; G0378; G8987; G8988; J0131; J0690; J1580; J2250; J2270; J3010; J7120; J8501

== ENCOUNTER 2017-05-01 23:02 | Emergency (ER) | payer MEDICARE ==
[~2017-05-01] VITALS: Ht 167.6 cm; Wt 83.0 kg
[~2017-05-01 23:02] MED LIST changes: -ASPI81TA23 PO; +DOCU1CAP39 PO; -HYDR-3133 PO; +HYDR-3583 PO; -MELO15TA20 PO; +METH500T3 PO; -ROSU1TAB6 PO; -TRAM50TA PO
[2017-05-01 23:06] VITALS: BP 104/57; PULSE 109; RESP 18; TEMP 98.4; O2SAT 96
[2017-05-02 02:59] LABS: AUTOMATED NEUTROPHIL # 6.6 TH/MM3 (1.8-7.7); BASOPHIL % 0.1 % (0.0-2.0); EOSINOPHIL % 0.3 % (0.0-4.0); HEMATOCRIT 31.5 % (35.0-46.0); HEMOGLOBIN 9.9 GM/DL (11.6-15.3); LYMPH % 14.9 % (9.0-44.0); LYMPHOCYTE # 1.2 TH/MM3 (1.0-4.8); MEAN CELL VOLUME 91.5 FL (80.0-100.0); MEAN CORPUSCULAR HEMOGLOBIN 28.8 PG (27.0-34.0); MEAN CORPUSCULAR HGB CONC 31.4 % (32.0-36.0); MEAN PLATELET VOLUME 8.3 FL (7.0-11.0); MONO % 2.8 % (0.0-8.0); MONOCYTE # 0.2 TH/MM3 (0-0.9); NEUT % 81.9 % (16.0-70.0); PLATELET COUNT 183 TH/MM3 (150-450); RED BLOOD COUNT 3.44 MIL/MM3 (4.00-5.30); RED CELL DISTRIBUTION WIDTH 13.7 % (11.6-17.2)
[2017-05-02 03:03] VITALS: BP 123/63; PULSE 78; RESP 18; O2SAT 98
[2017-05-02 03:09] LABS: ALBUMIN 2.9 GM/DL (3.4-5.0); ALKALINE PHOSPHATASE 176 U/L (45-117); ALT (GPT) 15 U/L (10-53); AST (GOT) 20 U/L (15-37); BLOOD UREA NITROGEN 15 MG/DL (7-18); CALCIUM 8.1 MG/DL (8.5-10.1); CHLORIDE 107 MEQ/L (98-107); CREATININE 0.84 MG/DL (0.50-1.00); GLOMERULAR FILTRATION RATE 65 ML/MIN (>89); GLUCOSE,RANDOM 105 MG/DL (74-106); SODIUM (NA) 141 MEQ/L (136-145); TOTAL BILIRUBIN ADULT 0.3 MG/DL (0.2-1.0); TOTAL PROTEIN 6.4 GM/DL (6.4-8.2)
[2017-05-02 03:10] LABS: BICARBONATE 26.7 MEQ/L (21.0-32.0)
[2017-05-02] MEDS ORDERED: IOHEXOL 350 MG/ML 10 ML VIAL (for RAD DIAG) IVCONTRAST ONE (03:39)
[2017-05-02 03:42] LABS: BILIRUBIN, URINE NEG (NEG); BLOOD, URINE NEG (NEG); GLUCOSE,URINE NEG (NEG); KETONE, URINE NEG (NEG); NITRITE,URINE NEG (NEG); PH, URINE 5.5 (5.0-8.5); URINE COLOR YELLOW (YELLW/STRAW); URINE LEUKOCYTE ESTERASE TRACE (NEG)
[2017-05-02 03:57] LABS: BACTERIA, URINE RARE /hpf; RBC, URINE 0-3 /hpf (0-3); SQUAMOUS EPITHELIAL CELL URINE 0-5 /hpf (0-5)
--- NOTE | 2017-05-02 03:58 | RADRPT ---
EXAM DATE/TIME: 05/02/2017 03:23 [place] COMPARISON: CT ABDOMEN & PELVIS W CONTRAST, September 10, 2016, 17:45. INDICATIONS : Left lower abdominal pain. IV CONTRAST: 90 cc Omnipaque 350 (iohexol) IV ORAL CONTRAST: No oral contrast ingested. RADIATION DOSE: 17.13 CTDIvol (mGy) MEDICAL HISTORY : Hypertension. Gastroesophageal reflux disease. SURGICAL HISTORY : Hysterectomy. ENCOUNTER: Initial ACUITY: 1 day PAIN SCALE: 4/10 LOCATION: Left lower quadrant TECHNIQUE: Volumetric scanning of the abdomen and pelvis was performed. Using automated exposure control and ad justment of the mA and/or kV according to patient size, radiation dose was kept as low as reasonably achievable to obtain optimal diagnostic quality images. DICOM format image data is available electro nically for review and comparison. FINDINGS: LOWER LUNGS: The visualized lower lungs are clear. LIVER: Homogeneous density with stable small benign cysts again noted. There is no dilation of the biliary t ree. No calcified gallstones. SPLEEN: Normal size without lesion. PANCREAS: Within normal limits. KIDNEYS: Normal in size and shape. There is no mass, stone or hydronephrosis. ADRENAL GLANDS: Within normal limits. VASCULAR: There is no aortic aneurysm. BOWEL/MESENTERY: A small hiatal hernia is again noted. Multiple diverticuli are present with no inflammatory change. T he stomach, small bowel, and colon demonstrate no acute abnormality. There is no free intraperitonea l air or fluid. ABDOMINAL WALL: Within normal limits. RETROPERITONEUM: There is no lymphadenopathy. BLADDER: No wall thickening or mass. REPRODUCTIVE: Within normal limits. INGUINAL: There is no lymphadenopathy or hernia. MUSCULOSKELETAL: Osteopenia, degenerative change and scoliosis are again noted. CONCLUSION: 1. Small hiatal hernia. 2. Multiple stable hepatic cysts. 3. Mild diverticulosis with no inflammatory change. Joo Ochoa MD on May 02, 2017 at 3:52 Board Certified Radiologist. This report was verified electronically.
[2017-05-02] MEDS ORDERED: PERC5TAB12 PO (04:36)
[2017-05-02] MEDS ORDERED: ZOFR4TAB PO (04:36)
--- NOTE | 2017-05-02 04:36 | PD ---
HPI Chief Complaint: Abdominal Pain Time Seen by Provider: 04:27 Travel History International Travel<30 days: No Contact w/Intl Traveler<30days: No Traveled to known affect area: No History of Present Illness HPI The patient is an 82-year-old female with complaints of lower abdominal pain for 3-4 days. She did have some nausea but no vomiting. Her pain is dull pain and a 7/10 in intensity. Her only abdominal surgery has been a hysterectomy. PFSH Past Medical History Anemia: Yes Arthritis: Yes (RHEUMATOID) Blood Disorders: No Heart Rhythm Problems: No Cancer: No Cardiovascular Problems: No High Cholesterol: Yes Chest Pain: No Congestive Heart Failure: No Diabetes: No Diminished Hearing: No Endocrine: No Gastrointestinal Disorders: Yes (REFLUX) GERD: Yes Genitourinary: Yes (OVERACTIVE) Hepatitis: No Hiatal Hernia: No Hypertension: Yes Immune Disorder: Yes (RHEUMATOID ARTHRITIS) Musculoskeletal: Yes (LOW BACK PAIN RADIATING DOWN LEGS) Psychiatric: No Reproductive: No Respiratory: No Myocardial Infarction: No Thyroid Disease: No Ulcer: No Tetanus Vaccination: > 5 Years Influenza Vaccination: No ?: Not Menopausal: Yes Past Surgical History Abdominal Surgery: No AICD: No Appendectomy: No Body Medical Devices: LOW BACK FUSION ? Cardiac Surgery: No Cholecystectomy: No Endocrine Surgery: No Eye Surgery: No Genitourinary Surgery: No Gynecologic Surgery: Yes (PARTIAL HYSTERECTOMY ) Hysterectomy: Yes Joint Replacement: No Neurologic Surgery: Yes (BACK SURGERY) Oral Surgery: Yes (TONSILECTOMY) Pacemaker: No Thoracic Surgery: No Tonsillectomy: Yes Other Surgery: Yes Social History Alcohol Use: Yes (~1 XWEEK) Tobacco Use: No Substance Use: No Allergies-Medications (Allergen,Severity, Reaction): Coded Allergies: No Known Allergies (Verified Adverse Reaction, Unknown, 05/01/17) Reported Meds & Prescriptions Reported Meds & Active Scripts Active Hydrocodone-Acetamin 10-325 mg (Hydrocodone/Acetaminophen) 10 Mg-325 Mg Tablet 1 Tab PO Q6HR PRN Methocarbamol 500 Mg Tab 500 Mg PO Q8H PRN Dok (Docusate Sodium) 100 Mg Cap 100 Mg PO BID Reported Duloxetine DR (Duloxetine HCl) 30 Mg Capdr 30 PO BID Nexium (Esomeprazole DR) 20 Mg Capdr 20 Mg PO DAILY Folic Acid 400 Mcg Tab Unknown Dose PO DAILY Sumatriptan (Sumatriptan Succinate) 100 Mg Tab 100 Mg PO ONCE PRN If a satisfactory response has not been obtained at 2 hours, a second dose may be administered Pramipexole (Pramipexole Dihydrochloride) 0.25 Mg Tab 0.25 Mg PO DAILY Methotrexate 2.5 Mg Tab 7.5 Mg PO Q7D Clonazepam 0.5 Mg Tab 0.5 Mg PO BID PRN Lisinopril 20 Mg Tab 20 Mg PO DAILY Review of Systems Except as stated in HPI: all other systems reviewed are Neg Physical Exam Narrative GENERAL: The patient is alert, oriented 3 in slight apparent distress with her abdominal discomfort. Her vital signs show heart rate of 109 but are otherwise normal. SKIN: Focused skin assessment warm/dry. HEAD: Atraumatic. Normocephalic. EYES: Pupils equal and round. No scleral icterus. No injection or drainage. ENT: No nasal bleeding or discharge. Mucous membranes pink and moist. NECK: Trachea midline. No JVD. CARDIOVASCULAR: Regular rate and rhythm. No murmur appreciated. RESPIRATORY: No accessory muscle use. Clear to auscultation. Breath sounds equal bilaterally. GASTROINTESTINAL: Abdomen soft, with tenderness in the right lower quadrant to direct palpation, nondistended. Hepatic and splenic margins not palpable. No guarding or rebound is present. MUSCULOSKELETAL: No obvious deformities. No clubbing. No cyanosis. No edema. NEUROLOGICAL: Awake and alert. No obvious cranial nerve deficits. Motor grossly within normal limits. Normal speech. PSYCHIATRIC: Appropriate mood and affect; insight and judgment normal. Data Data Last Documented VS Vital Signs Date Time Temp Pulse Resp B/P (MAP) Pulse Ox O2 Delivery O2 Flow Rate FiO2 05/02/17 03:03 78 18 123/63 (83) 98 Room Air 05/01/17 23:[address] Abd/Pel W Iv Contrast(Rout) (05/02/17 ) Comprehensive Metabolic Panel (05/02/17 01:42) Complete Blood Count With Diff (05/02/17 01:42) Urinalysis - C+S If Indicated (05/02/17 01:42) Iohexol 350 Inj (Omnipaque 350 Inj) (05/02/17 03:39) Labs Laboratory Tests Test 05/02/17 01:42 White Blood Count 8.0 TH/MM3 Red Blood Count 3.44 MIL/MM3 Hemoglobin 9.9 GM/DL Hematocrit 31.5 % Mean Corpuscular Volume 91.5 FL Mean Corpuscular Hemoglobin 28.8 PG Mean Corpuscular Hemoglobin Concent 31.4 % Red Cell Distribution Width 13.7 % Platelet Count 183 TH/MM3 Mean Platelet Volume 8.3 FL Neutrophils (%) (Auto) 81.9 % Lymphocytes (%) (Auto) 14.9 % Monocytes (%) (Auto) 2.8 % Eosinophils (%) (Auto) 0.3 % Basophils (%) (Auto) 0.1 % Neutrophils # (Auto) 6.6 TH/MM3 Lymphocytes # (Auto) 1.2 TH/MM3 Monocytes # (Auto) 0.2 TH/MM3 Eosinophils # (Auto) 0.0 TH/MM3 Basophils # (Auto) 0.0 TH/MM3 CBC Comment DIFF FINAL Differential Comment Urine Color YELLOW Urine Turbidity CLEAR Urine pH 5.5 Urine Specific [place] 1.015 Urine Protein NEG mg/dL Urine Glucose (UA) NEG mg/dL Urine Ketones NEG mg/dL Urine Occult Blood NEG Urine Nitrite NEG Urine Bilirubin NEG Urine Urobilinogen 0.2 MG/DL Urine Leukocyte Esterase TRACE Urine RBC 0-3 /hpf Urine WBC 6-8 /hpf Urine Squamous Epithelial Cells 0-5 /hpf Urine Bacteria RARE /hpf Microscopic Urinalysis Comment CULT NOT INDICATED Blood Urea Nitrogen 15 MG/DL Creatinine 0.84 MG/DL Random Glucose 105 MG/DL Total Protein 6.4 GM/DL Albumin 2.9 GM/DL Calcium Level 8.1 MG/DL Alkaline Phosphatase 176 U/L Aspartate Amino Transf (AST/SGOT) 20 U/L Alanine Aminotransferase (ALT/SGPT) 15 U/L Total Bilirubin 0.3 MG/DL Sodium Level 141 MEQ/L Potassium Level 3.8 MEQ/L Chloride Level 107 MEQ/L Carbon Dioxide Level 26.7 MEQ/L Anion Gap 7 MEQ/L Estimat Glomerular Filtration Rate 65 ML/MIN [facility] Medical Decision Making Medical Screen Exam Complete: Yes Emergency Medical Condition: Yes Medical Record Reviewed: Yes Interpretation(s) The CT abdomen/pelvis with IV contrast show small hiatal hernia, stable hepatic cysts and mild diverticulosis without any evidence for diverticulitis. The complete metabolic profile shows a GFR of 65, albumin 2.9, calcium 8.1 with alkaline phosphatase 176 but is otherwise normal. The urinalysis shows trace leukocyte Estrace, 6 date white cells with rare bacteria and culture is not indicated. Differential Diagnosis Acute appendicitis, right-sided diverticulitis, urinary tract infection, urinary stone, abdominal pain etiology undetermined Narrative Course The patient has abdominal pain etiology undetermined. She will be given Percocet 5 as well as Zofran for pain and nausea. She needs to follow-up with Dr. Judah Sanders this week. Additional Instructions: We cannot find a cause for your abdominal pain. Continue the urinary antibiotic as you may still have a urinary infection. Increase her liquid intake. Follow-up with Dr. Sanders, hopefully on Wednesday or Wednesday. Med/Other Pt SpecificInfo: Prescription(s) given Scripts Ondansetron (Zofran) 4 Mg Tab 4 MG PO Q6HR Y for NAUSEA OR VOMITING, #30 TAB 0 Refills Prov: Uriel Huff MD 05/02/17 Oxycodone-Acetaminophen (Percocet) 5-325 mg Tab 1 TAB PO Q6H Y for PAIN, #15 TAB 0 Refills Prov: Uriel Huff MD 05/02/17 Disposition: DISCHARGE HOME Condition: Stable Uriel Huff MD May 02, 2017 04:36
== END 2017-05-02 04:59 | disposition home or self-care (01) ==
LOC: PHED 23:02
DX: R10.32 Left lower quadrant pain (principal); R11.0 Nausea; I10 Essential (primary) hypertension; K21.9 Gastro-esophageal reflux disease without esophagitis; M06.9 Rheumatoid arthritis, unspecified
CPT/HCPCS: 74177; 80053; 81001; 85025; 99285; Q9967

== ENCOUNTER 2017-05-16 15:34 | Emergency (ER) | payer MEDICARE ==
[~2017-05-16] VITALS: Ht 170.2 cm; Wt 80.3 kg
[~2017-05-16 15:34] MED LIST changes: +PERC5TAB12 PO; +ZOFR4TAB PO
[2017-05-16 15:38] VITALS: BP 166/68; PULSE 88; RESP 19; TEMP 97.9; O2SAT 99
[2017-05-16] MEDS ORDERED: SODIUM CHLORIDE 0.9% FLUSH 10 ML FLUSH IV FLUSH PRN (17:00)
[2017-05-16] MEDS ORDERED: ONDANSETRON HCL 4 MG/2 ML VIAL IV PUSH ONE (17:00)
[2017-05-16] MEDS ORDERED: MORPHINE SULFATE 8 MG/ML INJ IV PUSH ONE (17:00)
--- NOTE | 2017-05-16 17:08 | PD ---
HPI Chief Complaint: Abdominal Pain Time Seen by Provider: 16:48 Travel History International Travel<30 days: No Contact w/Intl Traveler<30days: No Traveled to known affect area: No History of Present Illness HPI Patient is an 82-year-old female presents emergency department with right lower quadrant extreme abdominal pain with nausea. Patient states radiating down to her right groin. No saddle anesthesia no difficulty urinating. Patient states she also had an MRI of her back recently. She states the pain is been going on for a week ever since she was seen last time. Patient states she was seen just 3 days ago however according to her records she was seen over 2 weeks ago for same complaint. She had a CAT scan of her abdomen at that time which was negative. Patient states her pain is somewhat worse today, it was some nausea without vomiting. No diarrhea no constipation. PFSH Past Medical History Anemia: Yes Arthritis: Yes (RHEUMATOID) Blood Disorders: No Heart Rhythm Problems: No Cancer: No Cardiovascular Problems: No High Cholesterol: Yes Chest Pain: No Congestive Heart Failure: No Diabetes: No Diminished Hearing: No Endocrine: No Gastrointestinal Disorders: Yes (REFLUX) GERD: Yes Genitourinary: Yes (OVERACTIVE) Hepatitis: No Hiatal Hernia: No Hypertension: Yes Immune Disorder: Yes (RHEUMATOID ARTHRITIS) Musculoskeletal: Yes (LOW BACK PAIN RADIATING DOWN LEGS) Psychiatric: No Reproductive: No Respiratory: No Myocardial Infarction: No Thyroid Disease: No Ulcer: No ?: Not Menopausal: Yes Past Surgical History Abdominal Surgery: No AICD: No Appendectomy: No Body Medical Devices: LOW BACK FUSION ? Cardiac Surgery: No Cholecystectomy: No Endocrine Surgery: No Eye Surgery: No Genitourinary Surgery: No Gynecologic Surgery: Yes (PARTIAL HYSTERECTOMY ) Hysterectomy: Yes Joint Replacement: No Neurologic Surgery: Yes (BACK SURGERY) Oral Surgery: Yes (TONSILECTOMY) Pacemaker: No Thoracic Surgery: No Tonsillectomy: Yes Other Surgery: Yes Social History Alcohol Use: Yes (~1 XWEEK) Tobacco Use: No Substance Use: No Allergies-Medications (Allergen,Severity, Reaction): Coded Allergies: No Known Allergies (Verified Adverse Reaction, Unknown, 05/16/17) Reported Meds & Prescriptions Reported Meds & Active Scripts Active Oxycodone-Acetaminophen 10-325 (Oxycodone HCl/Acetaminophen) 10 Mg-325 Mg Tablet 1 Tab PO Q6HR PRN Percocet (Oxycodone-Acetaminophen) 5-325 mg Tab 1 Tab PO Q6H PRN Hydrocodone-Acetamin 10-325 mg (Hydrocodone/Acetaminophen) 10 Mg-325 Mg Tablet 1 Tab PO Q6HR PRN Methocarbamol 500 Mg Tab 500 Mg PO Q8H PRN Dok (Docusate Sodium) 100 Mg Cap 100 Mg PO BID Reported Duloxetine DR (Duloxetine HCl) 30 Mg Capdr 30 PO BID Nexium (Esomeprazole DR) 20 Mg Capdr 20 Mg PO DAILY Folic Acid 400 Mcg Tab Unknown Dose PO DAILY Sumatriptan (Sumatriptan Succinate) 100 Mg Tab 100 Mg PO ONCE PRN If a satisfactory response has not been obtained at 2 hours, a second dose may be administered Pramipexole (Pramipexole Dihydrochloride) 0.25 Mg Tab 0.25 Mg PO DAILY Methotrexate 2.5 Mg Tab 7.5 Mg PO Q7D Clonazepam 0.5 Mg Tab 0.5 Mg PO BID PRN Lisinopril 20 Mg Tab 20 Mg PO DAILY Review of Systems Except as stated in HPI: all other systems reviewed are Neg Physical Exam Narrative GENERAL: Well-developed well-nourished no obvious distress. SKIN: Focused skin assessment warm/dry. HEAD: Atraumatic. Normocephalic. EYES: Pupils equal and round. No scleral icterus. No injection or drainage. ENT: No nasal bleeding or discharge. Mucous membranes pink and moist. NECK: Trachea midline. No JVD. CARDIOVASCULAR: Regular rate and rhythm. No murmur appreciated. RESPIRATORY: No accessory muscle use. Clear to auscultation. Breath sounds equal bilaterally. GASTROINTESTINAL: Abdomen soft, non-tender, nondistended. Hepatic and splenic margins not palpable. No rebound no percussive tenderness, Rovsing sign negative, psoas and obturator signs negative MUSCULOSKELETAL: No obvious deformities. No clubbing. No cyanosis. No edema. There is no tenderness of the right hip, pelvis is stable. Full nontender range of motion of the right hip and knee. NEUROLOGICAL: Awake and alert. No obvious cranial nerve deficits. Motor grossly within normal limits. Normal speech. PSYCHIATRIC: Appropriate mood and affect; insight and judgment normal. Data Data Last Documented VS Vital Signs Date Time Temp Pulse Resp B/P (MAP) Pulse Ox O2 Delivery O2 Flow Rate FiO2 05/16/17 19:56 4/8/18 19:33 78 20 98 05/16/17 18:26 Room Air 05/16/17 15:38 97.9 Orders Orders Complete Blood Count With Diff (05/16/17 16:58) Comprehensive Metabolic Panel (05/16/17 16:58) Lipase (05/16/17 16:58) Lactic Acid (05/16/17 16:58) Prothrombin Time / Inr (Pt) (05/16/17 16:58) Act Partial Throm Time (Ptt) (05/16/17 16:58) Urinalysis - C+S If Indicated (05/16/17 16:58) Ct Abd/Pel W Iv Contrast(Rout) (05/16/17 16:58) Iv Access Insert/Monitor (05/16/17 16:58) Ecg Monitoring (05/16/17 16:58) Oximetry (05/16/17 16:58) Sodium Chloride 0.9% Flush (Ns Flush) (05/16/17 17:00) Morphine Inj (Morphine Inj) (05/16/17 17:00) Ondansetron Inj (Zofran Inj) (05/16/17 17:00) Oral Contrast - Adult (05/16/17 17:02) Diatrizoate Liq ( Gastroview Liq) (05/16/17 17:23) Iohexol 350 Inj (Omnipaque 350 Inj) (05/16/17 18:39) Ed Discharge Order (05/16/17 19:53) Labs Laboratory Tests Test 05/16/17 17:15 05/16/17 18:20 White Blood Count 7.4 TH/MM3 Red Blood Count 3.63 MIL/MM3 Hemoglobin 10.7 GM/DL Hematocrit 32.8 % Mean Corpuscular Volume 90.5 FL Mean Corpuscular Hemoglobin 29.6 PG Mean Corpuscular Hemoglobin Concent 32.7 % Red Cell Distribution Width 13.6 % Platelet Count 182 TH/MM3 Mean Platelet Volume 8.2 FL Neutrophils (%) (Auto) 79.8 % Lymphocytes (%) (Auto) 17.3 % Monocytes (%) (Auto) 1.7 % Eosinophils (%) (Auto) 0.4 % Basophils (%) (Auto) 0.8 % Neutrophils # (Auto) 5.9 TH/MM3 Lymphocytes # (Auto) 1.3 TH/MM3 Monocytes # (Auto) 0.1 TH/MM3 Eosinophils # (Auto) 0.0 TH/MM3 Basophils # (Auto) 0.1 TH/MM3 CBC Comment DIFF FINAL Differential Comment Prothrombin Time 11.3 SEC Prothromb Time International Ratio 1.1 RATIO Activated Partial Thromboplast Time 38.8 SEC Blood Urea Nitrogen 18 MG/DL Creatinine 1.10 MG/DL Random Glucose 118 MG/DL Total Protein 7.4 GM/DL Albumin 3.6 GM/DL Calcium Level 9.2 MG/DL Alkaline Phosphatase 203 U/L Aspartate Amino Transf (AST/SGOT) 21 U/L Alanine Aminotransferase (ALT/SGPT) 16 U/L Total Bilirubin 0.4 MG/DL Sodium Level 140 MEQ/L Potassium Level 3.8 MEQ/L Chloride Level 106 MEQ/L Carbon Dioxide Level 26.0 MEQ/L Anion Gap 8 MEQ/L Estimat Glomerular Filtration Rate 48 ML/MIN Lactic Acid Level 1.5 mmol/L Lipase 110 U/L Urine Collection Type CLEAN CATCH Urine Color YELLOW Urine Turbidity CLEAR Urine pH 5.5 Urine Specific [place] LESS/EQUAL 1.005 Urine Protein NEG mg/dL Urine Glucose (UA) NEG mg/dL Urine Ketones NEG mg/dL Urine Occult Blood NEG Urine Nitrite NEG Urine Bilirubin NEG Urine Urobilinogen 0.2 MG/DL Urine Leukocyte Esterase NEG Urine RBC 0-3 /hpf Urine WBC 0-2 /hpf Urine Squamous Epithelial Cells 0-5 /hpf Microscopic Urinalysis Comment CULT NOT INDICATED Urine Collection Time 18:20 [facility] Medical Decision Making Medical Screen Exam Complete: Yes Emergency Medical Condition: Yes Differential Diagnosis Bony injury, appendicitis seems unlikely, cauda equina syndrome highly unlikely , back fracture unlikely, acute abdomen unlikely. Narrative Course Patient room to the emergency department, she appears fairly uncomfortable and after discussion of the risks of repeat CAT scanning she consents. Repeat CAT scan today shows that pubic rami in the superior and inferior rami are now present. I reviewed the previous CAT scan and there are very subtle but appear to be present then. I think this would explain her pain both then and now. Patient has been ambulatory for the past 2 weeks, she is feeling much better with pain medication delivered, at this time is no indication further workup, she is stable for discharge. Diagnosis Primary Impression: Pubic ramus fracture Referrals: Ulysses Mckinney MD Med/Other Pt SpecificInfo: Prescription(s) given Scripts Oxycodone HCl/Acetaminophen (Oxycodone-Acetaminophen 10-325) 10 Mg-325 Mg Tablet 1 TAB PO Q6HR Y for PAIN SCALE 6 TO 10, #20 0 Refills Prov: Hilario Cao MD 05/16/17 Disposition: 01 DISCHARGE HOME Condition: Stable Hilario Cao MD May 16, 2017 17:08
[2017-05-16 17:21] VITALS: O2SAT 96
[2017-05-16] MEDS ORDERED: DIATRIZOATE MEGLUM/DIATRIZOATE SOD 9 ML CUP ONE (17:23)
[2017-05-16 17:30] LABS: AUTOMATED NEUTROPHIL # 5.9 TH/MM3 (1.8-7.7); BASOPHIL # 0.1 TH/MM3 (0-0.2); BASOPHIL % 0.8 % (0.0-2.0); EOSINOPHIL % 0.4 % (0.0-4.0); HEMATOCRIT 32.8 % (35.0-46.0); HEMOGLOBIN 10.7 GM/DL (11.6-15.3); LYMPH % 17.3 % (9.0-44.0); LYMPHOCYTE # 1.3 TH/MM3 (1.0-4.8); MEAN CELL VOLUME 90.5 FL (80.0-100.0); MEAN CORPUSCULAR HEMOGLOBIN 29.6 PG (27.0-34.0); MEAN CORPUSCULAR HGB CONC 32.7 % (32.0-36.0); MEAN PLATELET VOLUME 8.2 FL (7.0-11.0); MONO % 1.7 % (0.0-8.0); MONOCYTE # 0.1 TH/MM3 (0-0.9); NEUT % 79.8 % (16.0-70.0); PLATELET COUNT 182 TH/MM3 (150-450); RED BLOOD COUNT 3.63 MIL/MM3 (4.00-5.30); RED CELL DISTRIBUTION WIDTH 13.6 % (11.6-17.2); WHITE BLOOD COUNT 7.4 TH/MM3 (4.0-11.0)
[2017-05-16 17:33] VITALS: BP 140/80; PULSE 95; RESP 20; O2SAT 99
[2017-05-16 17:42] LABS: CHLORIDE 106 MEQ/L (98-107); SODIUM (NA) 140 MEQ/L (136-145)
[2017-05-16 17:45] LABS: ALBUMIN 3.6 GM/DL (3.4-5.0); CALCIUM 9.2 MG/DL (8.5-10.1); GLUCOSE,RANDOM 118 MG/DL (74-106)
[2017-05-16 17:46] LABS: BLOOD UREA NITROGEN 18 MG/DL (7-18)
[2017-05-16 17:48] LABS: ALT (GPT) 16 U/L (10-53)
[2017-05-16 17:49] LABS: AST (GOT) 21 U/L (15-37); GLOMERULAR FILTRATION RATE 48 ML/MIN (>89)
[2017-05-16 17:50] LABS: TOTAL BILIRUBIN ADULT 0.4 MG/DL (0.2-1.0); TOTAL PROTEIN 7.4 GM/DL (6.4-8.2)
[2017-05-16 17:51] LABS: ALKALINE PHOSPHATASE 203 U/L (45-117)
[2017-05-16 18:05] LABS: INTERNATIONAL NORMALIZED RATIO 1.1 RATIO; PROTHROMBIN TIME - PATIENT 11.3 SEC (9.8-11.6)
[2017-05-16 18:26] VITALS: BP 146/64; PULSE 74; RESP 18; O2SAT 98
[2017-05-16 18:31] LABS: BILIRUBIN, URINE NEG (NEG); BLOOD, URINE NEG (NEG); GLUCOSE,URINE NEG (NEG); KETONE, URINE NEG (NEG); NITRITE,URINE NEG (NEG); PH, URINE 5.5 (5.0-8.5); URINE LEUKOCYTE ESTERASE NEG (NEG)
[2017-05-16 18:36] LABS: URINE COLOR YELLOW (YELLW/STRAW)
[2017-05-16 18:37] LABS: RBC, URINE 0-3 /hpf (0-3); SQUAMOUS EPITHELIAL CELL URINE 0-5 /hpf (0-5); WBC, URINE 0-2 /hpf (0-5)
[2017-05-16] MEDS ORDERED: IOHEXOL 350 MG/ML 10 ML VIAL (for RAD DIAG) IVCONTRAST ONE (18:39)
--- NOTE | 2017-05-16 18:58 | RADRPT ---
EXAM DATE/TIME: 05/16/2017 18:33 [place] COMPARISON: CT ABDOMEN & PELVIS W CONTRAST, May 02, 2017, 3:23. INDICATIONS : Right lower quadrant pain. IV CONTRAST: 85 cc Omnipaque 350 (iohexol) IV ORAL CONTRAST: Prescribed oral contrast ingested. RADIATION DOSE: 14.22 CTDIvol (mGy) MEDICAL HISTORY : Hypertension. Gastroesophageal reflux disease. SURGICAL HISTORY : Hysterectomy. Lumbar laminectomy. ENCOUNTER: Initial ACUITY: 2 days PAIN SCALE: 5/10 LOCATION: Right lower quadrant TECHNIQUE: Volumetric scanning of the abdomen and pelvis was performed. Using automated exposure control and ad justment of the mA and/or kV according to patient size, radiation dose was kept as low as reasonably achievable to obtain optimal diagnostic quality images. DICOM format image data is available electro nically for review and comparison. FINDINGS: LOWER LUNGS: The visualized lower lungs are clear. LIVER: Scattered subcentimeter hypodensities are again noted, probably benign. No biliary dilatation. SPLEEN: Normal size without lesion. PANCREAS: Within normal limits. KIDNEYS: Normal in size and shape. There is no mass, stone or hydronephrosis. ADRENAL GLANDS: Within normal limits. VASCULAR: Atherosclerotic aorta. No aneurysm. BOWEL/MESENTERY: The stomach, small bowel, and colon demonstrate no acute abnormality. There is sigmoid colon diverti culosis but no associated inflammatory changes. There is no free intraperitoneal air or fluid. Append ix well visualized, normal. ABDOMINAL WALL: Within normal limits. RETROPERITONEUM: There is no lymphadenopathy. BLADDER: No wall thickening or mass. REPRODUCTIVE: Previous hysterectomy. No free fluid. INGUINAL: There is no lymphadenopathy or hernia. MUSCULOSKELETAL: Subacute to chronic appearing bilateral sacral insufficiency fractures are noted. There are mildly di splaced fractures of the right superior and inferior pubic rami that are potentially insufficiency fr actures which have propagated since the prior study. 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 No large hematoma is demonstrated. No evidence of active bleeding. CONCLUSION: 1. Mildly displaced fractures of the right superior and inferior pubic rami are now apparent. Please see above. There are nonacute bilateral sacral insufficiency fractures which are right worse than lef t. 2. Otherwise negative. No obstruction or acute inflammatory changes are demonstrated. Carlos Bassett MD on May 16, 2017 at 18:50 Board Certified Radiologist. This report was verified electronically.
[2017-05-16 19:33] VITALS: BP 111/65; PULSE 78; RESP 20; O2SAT 98
[2017-05-16] MEDS ORDERED: OXYC1TAB36 PO (19:46)
== END 2017-05-16 20:04 | disposition home or self-care (01) ==
LOC: PHED 15:34 → PHEFT 20:04
DX: S32.501A Unspecified fracture of right pubis, initial encounter for closed fracture (principal); R10.31 Right lower quadrant pain; R11.0 Nausea; E78.00 Pure hypercholesterolemia, unspecified; K21.9 Gastro-esophageal reflux disease without esophagitis; I10 Essential (primary) hypertension; M06.9 Rheumatoid arthritis, unspecified; D64.9 Anemia, unspecified; X58.XXXA Exposure to other specified factors, initial encounter
CPT/HCPCS: 74177; 80053; 81001; 83605; 83690; 85025; 85610; 85730; 96374; 96375; 99284; J2270; J2405; Q9963; Q9967

== ENCOUNTER 2017-07-05 00:02 | Inpatient (IN) | payer MEDICARE ==
[2017-07-05] VITALS (11 sets, daily range): BP systolic 115–188; BP diastolic 58–90; PULSE 68–102; RESP 16–18; TEMP 97.7–98.8; O2SAT 92–99
[~2017-07-05] VITALS: Ht 167.6 cm; Wt 82.0 kg
[~2017-07-05 00:02] MED LIST changes: +OXYC1TAB36 PO; -ZOFR4TAB PO
[2017-07-05] MEDS ORDERED: ASPI81CH6 CHEW (00:32)
[2017-07-05] MEDS ORDERED: FISHCAP4 PO (00:32)
[2017-07-05] MEDS ORDERED: ROSU1TAB6 PO (00:32)
[2017-07-05] MEDS ORDERED: MELO15TA20 PO (00:32)
--- NOTE | 2017-07-05 00:38 | PD ---
HPI Chief Complaint: Fall Time Seen by Provider: 00:19 Travel History International Travel<30 days: No Contact w/Intl Traveler<30days: No Traveled to known affect area: No History of Present Illness HPI The patient is an 82 year old female who presents to the [facility] emergency department with a history of losing her balance and falling prior to arrival. The patient reports that she was reaching for her walker when she lost her balance. She reports that she twisted and landed on her right side. She now has right hip pain. The patient was unable to get up off the floor. The patient in route to this facility received multiple separate doses of morphine for pain relief. The patient reports that she has not felt well since November 2016. She reports that she underwent back surgery at that time and then was diagnosed with a pelvic fracture which she continues to heal from. Her primary care physician is Dr. Sanders. Her most recent fracture was a superior and inferior rami fracture on the right diagnosed on CAT scan on May 16, 2017. The patient denies hitting her head with the fall. She denies having any loss of consciousness. She denies having any neck pain, paresthesias, or new weakness of her extremities. She denies having any chest pain, chest pressure, or shortness of breath. She denies having any abdominal pain, vomiting, or diarrhea. She reports that she has been eating and drinking well prior to this. She reports that she has a history of chronic constipation related to the pain medication that she is on. Otherwise on review of systems she denies having any recent fevers, cough or congestion, urinary symptoms, or neurologic symptoms. [facility] Past Medical History Narrative Medical The patient's past medical history is significant for rheumatoid arthritis, chronic pain, hyperlipidemia, depression, acid reflux, migraine headaches, restless leg syndrome, hypertension, chronic low back pain, anemia. Anemia: Yes Arthritis: Yes (RHEUMATOID) Blood Disorders: No Heart Rhythm Problems: No Cancer: No Cardiovascular Problems: No High Cholesterol: Yes Chest Pain: No Congestive Heart Failure: No Diabetes: No Diminished Hearing: No Endocrine: No Gastrointestinal Disorders: Yes (REFLUX) GERD: Yes Genitourinary: Yes (OVERACTIVE) Hepatitis: No Hiatal Hernia: No Hypertension: Yes Immune Disorder: Yes (RHEUMATOID ARTHRITIS) Musculoskeletal: Yes (LOW BACK PAIN RADIATING DOWN LEGS) Psychiatric: No Reproductive: No Respiratory: No Myocardial Infarction: No Thyroid Disease: No Ulcer: No ?: Not Menopausal: Yes Past Surgical History Narrative Surgical The patient's past surgical history is significant for low back surgery, tonsillectomy, hysterectomy. Abdominal Surgery: No AICD: No Appendectomy: No Body Medical Devices: LOW BACK FUSION ? Cardiac Surgery: No Cholecystectomy: No Endocrine Surgery: No Eye Surgery: No Genitourinary Surgery: No Gynecologic Surgery: Yes (PARTIAL HYSTERECTOMY ) Hysterectomy: Yes Joint Replacement: No Neurologic Surgery: Yes (BACK SURGERY) Oral Surgery: Yes (TONSILECTOMY) Pacemaker: No Thoracic Surgery: No Tonsillectomy: Yes Other Surgery: Yes Social History Alcohol Use: Yes (~1 XWEEK) Tobacco Use: No Substance Use: No Allergies-Medications (Allergen,Severity, Reaction): Coded Allergies: No Known Allergies (Verified Adverse Reaction, Unknown, 07/05/17) Reported Meds & Prescriptions Reported Meds & Active Scripts Active Percocet (Oxycodone-Acetaminophen) 5-325 mg Tab 1 Tab PO Q6H PRN Hydrocodone-Acetamin 10-325 mg (Hydrocodone/Acetaminophen) 10 Mg-325 Mg Tablet 1 Tab PO Q6HR PRN Reported Fish Oil + D3 (Fish Oil-Cholecalciferol) 1,200-1,000 Mg-Unit Cap 1 Cap PO DAILY Aspirin Low Dose (Aspirin) 81 Mg Chew 81 Mg CHEW DAILY Meloxicam 15 Mg Tab 15 Mg PO DAILY Rosuvastatin (Rosuvastatin Calcium) 10 Mg Tab 10 Mg PO HS Duloxetine DR (Duloxetine HCl) 30 Mg Capdr 30 PO BID Folic Acid 400 Mcg Tab Unknown Dose PO DAILY Sumatriptan (Sumatriptan Succinate) 100 Mg Tab 100 Mg PO ONCE PRN If a satisfactory response has not been obtained at 2 hours, a second dose may be administered Pramipexole (Pramipexole Dihydrochloride) 0.25 Mg Tab 0.25 Mg PO DAILY Methotrexate 2.5 Mg Tab 7.5 Mg PO Q7D Clonazepam 0.5 Mg Tab 0.5 Mg PO BID PRN Lisinopril 20 Mg Tab 20 Mg PO DAILY Review of Systems Except as stated in HPI: all other systems reviewed are Neg General / Constitutional: No: Fever Eyes: No: Visual changes HENT: No: Headaches Cardiovascular: No: Chest Pain or Discomfort Respiratory: No: Shortness of Breath Gastrointestinal: No: Abdominal Pain Genitourinary: No: Dysuria Musculoskeletal: Positive: Myalgias, Arthralgias, Limited ROM, Pain Skin: No Rash Neurologic: No: Weakness, Focal Abnormalities, Change in Mentation, Slurred Speech, Sensory Disturbance Psychiatric: No: Depression Endocrine: No: Polydipsia Hematologic/Lymphatic: No: Easy Bruising Physical Exam Narrative General: The patient is a well-developed well-nourished female uncomfortable appearing on arrival, reported continued pain in the right leg. Head and Neck exam: Head is normocephalic atraumatic. Eyes: EOMI, pupils are equal round and reactive to light. Nose: Midline septum with pink mucous membranes Mouth: Dentition unremarkable. Moist mucus membranes. Posterior oropharynx is not erythematous. No tonsillar hypertrophy. Uvula midline. Airway patent. Neck: No palpable lymphadenopathy. No nuchal rigidity. No thyromegaly. Cardiovascular: Regular rate and rhythm without murmurs, gallops, or rubs. No pulse deficit to the extremities on simultaneous auscultation and palpation of her radial artery. Lungs: Clear to auscultation bilaterally. No wheezes, rhonchi, or rales. Abdomen: Soft, without tenderness to palpation in all 4 quadrants of the abdomen. No guarding, rebound, or rigidity. Normal bowel sounds are audible. No tenderness on palpation of McBurney's point. Extremities: No clubbing, cyanosis, or edema. 2+ pulses in all 4 extremities. The patient has the area of interest, right leg propped up underneath the knee by a pillow. Because of this it is difficult to identify if the patient has any shortening or rotation. The patient has exquisite tenderness on palpation along the proximal right hip and anterior right femur. There is no ecchymosis or erythema noted. The patient has no pain in her knee, tib-fib, ankle, or foot. The patient has less than 3 second capillary refill. Intact sensation over all digits. Back: No spinous process tenderness to palpation. No costovertebral angle tenderness to palpation. Neurologic Exam: Grossly nonfocal. Skin Exam: No rash noted. Intact skin that is warm and dry. Data Data Last Documented VS Vital Signs Date Time Temp Pulse Resp B/P (MAP) Pulse Ox O2 Delivery O2 Flow Rate FiO2 07/05/17 00:16 18 97 Room Air 07/05/17 00:12 97.8 68 149/90 (109) Orders Orders Femur (Ap & Lat/2vws) (07/05/17 00:35) Hip, Uni(Ap&Lat) W Ap Pelvis (07/05/17 00:35) Ice/Cold Pack (07/05/17 00:35) Electrocardiogram (07/05/17 00:35) Complete Blood Count With Diff (07/05/17 00:35) Comprehensive Metabolic Panel (07/05/17 00:35) Creatine Kinase (Cpk) (07/05/17 00:35) Ckmb (Isoenzyme) Profile (07/05/17 00:35) Troponin I (07/05/17 00:35) Prothrombin Time / Inr (Pt) (07/05/17 00:35) Act Partial Throm Time (Ptt) (07/05/17 00:35) Urinalysis - C+S If Indicated (07/05/17 00:35) Magnesium (Mg) (07/05/17 00:35) Chest, Single Ap (07/05/17 00:35) Iv Access Insert/Monitor (07/05/17 00:35) Ecg Monitoring (07/05/17 00:35) Oximetry (07/05/17 00:35) Urinary Catheter Insert/Apply (07/05/17 00:35) Metoclopramide Inj (Reglan Inj) (07/05/17 00:45) Morphine Inj (Morphine Inj) (07/05/17 01:00) CKMB (07/05/17 00:50) CKMB% (07/05/17 00:50) Ns + Kcl 20 Meq Inj (Ns + Kcl 20 Meq Inj (07/05/17 03:00) Admit Order (Ed Use Only) (07/05/17 02:55) Labs Laboratory Tests Test 07/05/17 00:50 White Blood Count 9.1 TH/MM3 Red Blood Count 3.32 MIL/MM3 Hemoglobin 10.2 GM/DL Hematocrit 30.6 % Mean Corpuscular Volume 92.1 FL Mean Corpuscular Hemoglobin 30.6 PG Mean Corpuscular Hemoglobin Concent 33.2 % Red Cell Distribution Width 15.2 % Platelet Count 197 TH/MM3 Mean Platelet Volume 8.5 FL Neutrophils (%) (Auto) 77.9 % Lymphocytes (%) (Auto) 17.3 % Monocytes (%) (Auto) 4.3 % Eosinophils (%) (Auto) 0.2 % Basophils (%) (Auto) 0.3 % Neutrophils # (Auto) 7.1 TH/MM3 Lymphocytes # (Auto) 1.6 TH/MM3 Monocytes # (Auto) 0.4 TH/MM3 Eosinophils # (Auto) 0.0 TH/MM3 Basophils # (Auto) 0.0 TH/MM3 CBC Comment DIFF FINAL Differential Comment Prothrombin Time 10.9 SEC Prothromb Time International Ratio 1.1 RATIO Activated Partial Thromboplast Time 34.2 SEC Blood Urea Nitrogen 15 MG/DL Creatinine 0.92 MG/DL Random Glucose 113 MG/DL Total Protein 6.7 GM/DL Albumin 3.5 GM/DL Calcium Level 8.1 MG/DL Magnesium Level 1.8 MG/DL Alkaline Phosphatase 129 U/L Aspartate Amino Transf (AST/SGOT) 25 U/L Alanine Aminotransferase (ALT/SGPT) 22 U/L Total Bilirubin 0.3 MG/DL Sodium Level 143 MEQ/L Potassium Level 3.1 MEQ/L Chloride Level 108 MEQ/L Carbon Dioxide Level 26.7 MEQ/L Anion Gap 8 MEQ/L Estimat Glomerular Filtration Rate 59 ML/MIN Total Creatine Kinase 105 U/L Creatine Kinase MB 3.4 NG/ML Troponin I LESS THAN 0.02 NG/ML MDM Medical Decision Making Medical Screen Exam Complete: Yes Emergency Medical Condition: Yes Medical Record Reviewed: Yes Differential Diagnosis Femur fracture, versus hip fracture, versus dislocation, versus pelvis fracture Narrative Course During the course of the patient's emergency department visit, the patient's history, examination, and differential diagnosis were reviewed with the patient. The patient was placed on a trainman with oximetry and frequent blood pressure monitoring. The patient had IV access obtained and blood work sent for analysis. The patient was initially provided normal saline IV fluids, morphine for pain, Reglan for nausea. The patient's laboratory studies were reviewed and remarkable for A white count of 9.1, hemoglobin 10.2, platelets 197 with 77.9 neutrophils, CMP is remarkable for potassium 3.1, potassium was added to the patient's supplemental IV fluids, chloride 108, glucose 113, calcium 8.1, magnesium 1.8, cardiac enzymes within normal limits, alk phos 129, PT 10.9, PTT 34.2. Radiology studies were reviewed and remarkable for Last Impressions Hip and Pelvis X-Ray 07/05/1734 Signed Impressions: CONCLUSION: Intertrochanteric fracture on the right and there are also fractures of the rig ht symphysis pubis and possibly superior pubic ramus as well. Femur X-Ray 07/05/1734 Signed Impressions: CONCLUSION: Intertrochanteric fracture on the right. Chest X-Ray 07/05/1734 Signed Impressions: CONCLUSION: No acute cardiopulmonary disease. The patient's results were discussed with the patient, including the plan of care. I explained that further testing and/ or monitoring is indicated based on the patient's history, examination, and/ or laboratory findings. Therefore, I recommended admission for additional evaluation. The patient expressed understanding and was agreeable with this plan. The patient was admitted to the hospital in stable condition and sent to a bed under the care of the [facility]. Physician Communication Physician Communication The patient's case including history, pertinent physical examination findings, and laboratory studies were discussed with the [facility]. It was agreed that the patient would be admitted to the [facility] service service. Diagnosis Primary Impression: Intertrochanteric fracture of right hip Qualified Codes: S72.141A - Displaced intertrochanteric fracture of right femur, initial encounter for closed fracture Admitting Information Admitting Physician Requests: Admit Fabiola Cope MD July 05, 2017 00:38
[2017-07-05] MEDS ORDERED: METOCLOPRAMIDE HCL 10 MG/2 ML VIAL IV PUSH ONE (00:45)
[2017-07-05] MEDS ORDERED: MORPHINE SULFATE 2 MG/ML SYRINGE IV PUSH ONE (00:45)
[2017-07-05] MEDS ORDERED: MORPHINE SULFATE 4 MG/ML INJ IV PUSH ONE (01:00)
[2017-07-05 01:16] LABS: AUTOMATED NEUTROPHIL # 7.1 TH/MM3 (1.8-7.7); BASOPHIL % 0.3 % (0.0-2.0); EOSINOPHIL % 0.2 % (0.0-4.0); HEMATOCRIT 30.6 % (35.0-46.0); HEMOGLOBIN 10.2 GM/DL (11.6-15.3); LYMPH % 17.3 % (9.0-44.0); LYMPHOCYTE # 1.6 TH/MM3 (1.0-4.8); MEAN CELL VOLUME 92.1 FL (80.0-100.0); MEAN CORPUSCULAR HEMOGLOBIN 30.6 PG (27.0-34.0); MEAN CORPUSCULAR HGB CONC 33.2 % (32.0-36.0); MEAN PLATELET VOLUME 8.5 FL (7.0-11.0); MONO % 4.3 % (0.0-8.0); MONOCYTE # 0.4 TH/MM3 (0-0.9); NEUT % 77.9 % (16.0-70.0); PLATELET COUNT 197 TH/MM3 (150-450); RED BLOOD COUNT 3.32 MIL/MM3 (4.00-5.30); RED CELL DISTRIBUTION WIDTH 15.2 % (11.6-17.2); WHITE BLOOD COUNT 9.1 TH/MM3 (4.0-11.0)
[2017-07-05 01:23] LABS: INTERNATIONAL NORMALIZED RATIO 1.1 RATIO; PROTHROMBIN TIME - PATIENT 10.9 SEC (9.8-11.6)
[2017-07-05 01:29] LABS: ALBUMIN 3.5 GM/DL (3.4-5.0); ALT (GPT) 22 U/L (10-53); AST (GOT) 25 U/L (15-37); BICARBONATE 26.7 MEQ/L (21.0-32.0); BLOOD UREA NITROGEN 15 MG/DL (7-18); CALCIUM 8.1 MG/DL (8.5-10.1); CHLORIDE 108 MEQ/L (98-107); CREATININE 0.92 MG/DL (0.50-1.00); GLOMERULAR FILTRATION RATE 59 ML/MIN (>89); GLUCOSE,RANDOM 113 MG/DL (74-106); MAGNESIUM 1.8 MG/DL (1.5-2.5); SODIUM (NA) 143 MEQ/L (136-145)
[2017-07-05 01:33] LABS: ALKALINE PHOSPHATASE 129 U/L (45-117); TOTAL BILIRUBIN ADULT 0.3 MG/DL (0.2-1.0); TOTAL PROTEIN 6.7 GM/DL (6.4-8.2); TROPONIN I LESS THAN 0.02 NG/ML (0.02-0.05)
--- NOTE | 2017-07-05 01:45 | RADRPT ---
EXAM DATE: 07/05/2017 1:42 AM EDT AGE/SEX: 82 years / Female INDICATIONS: Right hip pain from a fall. CLINICAL DATA: This is the patient's initial encounter. Patient reports that signs and symptoms have been present for 1 day and indicates a pain score of 10/10. MEDICAL/SURGICAL HISTORY: None. None. COMPARISON: No prior exams available for comparison. FINDINGS: Bony structures are osteopenic. There is a complete intertrochanteric fracture with almost 90 degrees of valgus angulation. The lesser trochanter is avulsed. CONCLUSION: Intertrochanteric fracture on the right. Electronically signed by: Salvatore Mandel MD 07/05/2017 1:44 AM EDT
--- NOTE | 2017-07-05 01:50 | RADRPT ---
EXAM DATE: 07/05/2017 1:47 AM EDT AGE/SEX: 82 years / Female INDICATIONS: Shortness of breath post fall. CLINICAL DATA: This is the patient's initial encounter. Patient reports that signs and symptoms have been present for 1 day and indicates a pain score of 0/10. MEDICAL/SURGICAL HISTORY: None. None. [place]PAR[place] [facility] [place] . FINDINGS: The lungs are clear without infiltrate, nodule, or mass. There is no appreciable pleural effusion for technique. Heart and mediastinum are unremarkable. CONCLUSION: No acute cardiopulmonary disease. Electronically signed by: Salvatore Mandel MD 07/05/2017 1:49 AM EDT
--- NOTE | 2017-07-05 01:54 | RADRPT ---
EXAM DATE: 07/05/2017 1:50 AM EDT AGE/SEX: 82 years / Female INDICATIONS: Right hip pain post fall. CLINICAL DATA: This is the patient's initial encounter. Patient reports that signs and symptoms have been present for 1 day and indicates a pain score of 10/10. MEDICAL/SURGICAL HISTORY: None. None. COMPARISON: [facility], PELVIS AP ONLY, 09/10/2016. . FINDINGS: Bony structures are osteopenic. There is a complete intertrochanteric fracture with avulsed lesser tr ochanter and 90 degrees of valgus angulation. There also appears to be fractures of the symphysis pub is and possibly superior vena cava ramus on the right. CONCLUSION: Intertrochanteric fracture on the right and there are also fractures of the right symphysis pubis and possibly superior pubic ramus as well. Electronically signed by: Salvatore Mandel MD 07/05/2017 1:52 AM EDT
--- NOTE | 2017-07-05 02:58 | HHI.HP ---
HPI Service Family Medicine Primary Care Physician Unknown Admission Diagnosis Right hip fracture Diagnoses: International Travel<30 Days: No Contact w/Intl Traveler<30days: No Known Affected Area: No History of Present Illness 82 y/o F w/hx of rheumatoid arthritis presents w/right hip pain. At 10:30 pm, patient was getting ready to go to bed. She reached over the bed to turn off the light over bed, making the room dark. She turned and reached to get her walker which was several feet away and tripped, falling on her right hip and knee. No numbness or tingling. Pain was over right hip area and was a 10 /10. [employer] that morphine took the edge off. No other hx of falls. Had fx in hip found in May after coming to the ER for lower pelvic pain. Does not know what caused it. Saw orthopedic surgeon (doesn't remember name), who advised her to lay in bed and walk around but avoiding sitting up. Has been following up with him and has an appointment set in July. Had compression vertebrae in 2016 as well, does not know what caused it either. No smoking hx, no known hx of osteoporosis. (Emily Lawrence MD R1) History of Present Illness 82-year-old female presents to the emergency department with a right intertrochanteric femoral fracture following mechanical fall at home. She states that she was reaching for something in the dark and tripped, falling onto her right hip and knee with immediate pain and inability to bear weight in her right hip and knee. Initial evaluation in the emergency department with x- ray showed an intertrochanteric fracture as well as subacute pelvic rami fractures. She is admitted for pain control and orthopedic evaluation. (Albert Lagunas MD) Review of Systems Constitutional: DENIES: Fever, Weight loss, Change in appetite Endocrine: DENIES: Polydipsia Eyes: DENIES: Vision loss Ears, nose, mouth, throat: DENIES: Hearing loss, Running Nose Respiratory: DENIES: Cough, Shortness of breath Cardiovascular: DENIES: Chest pain Gastrointestinal: COMPLAINS OF: Constipation, DENIES: Abdominal pain Genitourinary: DENIES: Urinary incontinence, Urgency Musculoskeletal: COMPLAINS OF: Joint pain Integumentary: DENIES: Abnormal pigmentation Immunologic/allergic: DENIES: Eczema Neurologic: DENIES: Headache, Paresthesias (Emily Lawrence MD R1) Past Family Social History Past Medical History November 2016, dx w/compression L5 vertebrae and stenosis of L1-L4 May 2017, mildly displaced fx of right superior and inferior pubic rami Wrist fracture 2010 Migraines HTN HLD Depression/anxiety RA Restless leg syndrome Past Surgical History Lumbar surgery 1970 Hysterectomy Lymph node resection Reported Medications Reported Meds & Active Scripts Active Percocet (Oxycodone-Acetaminophen) 5-325 mg Tab 1 Tab PO Q6H PRN Hydrocodone-Acetamin 10-325 mg (Hydrocodone/Acetaminophen) 10 Mg-325 Mg Tablet 1 Tab PO Q6HR PRN Reported Fish Oil + D3 (Fish Oil-Cholecalciferol) 1,200-1,000 Mg-Unit Cap 1 Cap PO DAILY Aspirin Low Dose (Aspirin) 81 Mg Chew 81 Mg CHEW DAILY Meloxicam 15 Mg Tab 15 Mg PO DAILY Rosuvastatin (Rosuvastatin Calcium) 10 Mg Tab 10 Mg PO HS Duloxetine DR (Duloxetine HCl) 30 Mg Capdr 30 PO BID Folic Acid 400 Mcg Tab Unknown Dose PO DAILY Sumatriptan (Sumatriptan Succinate) 100 Mg Tab 100 Mg PO ONCE PRN If a satisfactory response has not been obtained at 2 hours, a second dose may be administered Pramipexole (Pramipexole Dihydrochloride) 0.25 Mg Tab 0.25 Mg PO DAILY Methotrexate 2.5 Mg Tab 7.5 Mg PO Q7D Clonazepam 0.5 Mg Tab 0.5 Mg PO BID PRN Lisinopril 20 Mg Tab 20 Mg PO DAILY (Emily Lawrence MD R1) Allergies: Coded Allergies: No Known Allergies (Verified Adverse Reaction, Unknown, 07/05/17) Family History Mom: heart disease Dad: cancer Social History Lives in [place] in a two-story house w/ and a bird No smoking. Drinks 1 beer a week No illicit or recreational disease (Emily Lawrence MD R1) Physical Exam Vital Signs Vital Signs Date Time Temp Pulse Resp B/P (MAP) Pulse Ox O2 Delivery O2 Flow Rate FiO2 07/05/17 00:16 18 97 Room Air 07/05/17 00:12 97.8 68 18 149/90 (109) 98 Physical Exam GENERAL: This is a pleasant, elderly lady resting flat in bed, in no acute distress. Is conversant and inquisitive. SKIN: Cool and dry. HEAD: Atraumatic. Normocephalic. No temporal or scalp tenderness or bruising. EYES: Pupils equal round and reactive. Extraocular motions intact. No scleral icterus. No injection or drainage. ENT: Nose without bleeding, purulent drainage or septal hematoma. Throat without erythema, tonsillar hypertrophy or exudate. Uvula midline. Airway patent. NECK: Trachea midline. CARDIOVASCULAR: Regular rate and rhythm without murmurs, gallops, or rubs. RESPIRATORY: Clear to auscultation. Breath sounds equal bilaterally. No wheezes , rales, or rhonchi. GASTROINTESTINAL: Abdomen soft, non-tender, nondistended. No hepato-splenomegaly , or palpable masses. No guarding. MUSCULOSKELETAL: Extremities without clubbing, cyanosis, or edema. No calf tenderness. Light bruising of the lateral aspect of the knee noted, with slight edema and tenderness. Able to move toes of both LE bilaterally. Good capillary refill. Dorsal pedis pulses intact bilaterally. Sensation intact bilaterally. NEUROLOGICAL: Awake and alert. No focal deficits. Motor and sensory grossly within normal limits. Normal speech. Laboratory Laboratory Tests Test 07/05/17 00:50 White Blood Count 9.1 Red Blood Count 3.32 Hemoglobin 10.2 Hematocrit 30.6 Mean Corpuscular Volume 92.1 Mean Corpuscular Hemoglobin 30.6 Mean Corpuscular Hemoglobin Concent 33.2 Red Cell Distribution Width 15.2 Platelet Count 197 Mean Platelet Volume 8.5 Neutrophils (%) (Auto) 77.9 Lymphocytes (%) (Auto) 17.3 Monocytes (%) (Auto) 4.3 Eosinophils (%) (Auto) 0.2 Basophils (%) (Auto) 0.3 Neutrophils # (Auto) 7.1 Lymphocytes # (Auto) 1.6 Monocytes # (Auto) 0.4 Eosinophils # (Auto) 0.0 Basophils # (Auto) 0.0 CBC Comment DIFF FINAL Differential Comment Prothrombin Time 10.9 Prothromb Time International Ratio 1.1 Activated Partial Thromboplast Time 34.2 Blood Urea Nitrogen 15 Creatinine 0.92 Random Glucose 113 Total Protein 6.7 Albumin 3.5 Calcium Level 8.1 Magnesium Level 1.8 Alkaline Phosphatase 129 Aspartate Amino Transf (AST/SGOT) 25 Alanine Aminotransferase (ALT/SGPT) 22 Total Bilirubin 0.3 Sodium Level 143 Potassium Level 3.1 Chloride Level 108 Carbon Dioxide Level 26.7 Anion Gap 8 Estimat Glomerular Filtration Rate 59 Total Creatine Kinase 105 Creatine Kinase MB 3.4 Troponin I LESS THAN 0.02 (Emily Lawrence MD R1) Physical Exam General: Pleasant, elderly female lying in bed in no obvious distress CV: Regular rate and rhythm without murmurs Pulmonary: Clear to auscultation bilaterally MSK: Right lower extremity somewhat shortened and externally rotated at rest. Minimal internal rotation elicits pain in the hip. 2+ dorsalis pedis pulses and sensation intact into lower extremity and foot. (Albert Lagunas MD) Result Diagram: 07/05/174907/05/1749 Imaging Last Impressions Hip and Pelvis X-Ray 07/05/1734 Signed Impressions: CONCLUSION: Intertrochanteric fracture on the right and there are also fractures of the rig ht symphysis pubis and possibly superior pubic ramus as well. Femur X-Ray 07/05/1734 Signed Impressions: CONCLUSION: Intertrochanteric fracture on the right. Chest X-Ray 07/05/1734 Signed Impressions: CONCLUSION: No acute cardiopulmonary disease. Course Received 2 mg morphin IV x1 and 5 mg Reglan x1 in the ED. Also, received 1 bolus of Ns + 20 meq KCl. (Emily Lawrence MD R1) Caprini VTE Risk Assessment Caprinajith VTE Risk Assessment: Mod/High Risk (score >= 2) (Emily Lawrence MD R1) Assessment and Plan Assessment and Plan 82 y/o F admitted for R hip fracture. Ortho consulted. Patient made NPO and placed on IVF. Plan for possible procedure tomorrow. (Emily Lawrence MD R1) Attending Attestation THIS CASE WAS DISCUSSED WITH THE RESIDENT PHYSICIANS. I HAVE REVIEWED THE RECORD AND AGREE WITH THE ABOVE NOTE AND PLAN OF CARE WAS DISCUSSED. I HAVE AUTHORIZED THE ORDER FOR ADMISSION TO AN IN-PATIENT STATUS. (Albert Lagunas MD) Problem List: (1) Intertrochanteric fracture of right hip ICD Codes: S72.141A - Displaced intertrochanteric fracture of right femur, initial encounter for closed fracture Status: Acute Plan: Per XR Consult Orthopedics NPO except PO meds NS IVF @125 mls/hr Tylenol 650 mg PO Q6H for pain 1-2 PRN Percocet 5-325 mg PO Q6H PRN pain 3-5 Percocet 10-325 mg PO Q6H PRN pain 6-10 IV morphin 4 mg q2H breakthrough pain PRN dulcolex scheduled BID and constipation meds prn pulse ox SCDs bed rest ice pack q8x to site of pain/inflammation (2) Fracture of superior ramus of right pubis ICD Codes: S32.511A - Fracture of superior rim of right pubis, initial encounter for closed fracture Status: Acute Plan: Per XR See above plan (3) Hypokalemia ICD Codes: E87.6 - Hypokalemia Plan: K+ 3.1 on admission Received 20 meq K+ in IVF Provide 20 meq KCl PO Recheck BMP this AM (4) HTN (hypertension) ICD Codes: I10 - Essential (primary) hypertension Status: Chronic Plan: Con't home lisinopril 20 mg daily (5) HLD (hyperlipidemia) ICD Codes: E78.5 - Hyperlipidemia, unspecified Status: Chronic Plan: hold rosuvastatin 10 mg PO HS and ASA 81 mg chew (6) Anxiety ICD Codes: F41.9 - Anxiety disorder, unspecified Status: Chronic Plan: con't home duloxetine 30 mg BID, clonazepam 0.5 mg PO BID PRN anxiety (7) Restless leg syndrome ICD Codes: G25.81 - Restless legs syndrome Status: Chronic Plan: con't 0.25 mg pramipexole PO daily (8) Anemia ICD Codes: D64.9 - Anemia, unspecified Plan: Normocytic Monitor via daily CBC Transfuse if hgb <7 (9) Rheumatoid arthritis ICD Codes: M06.9 - Rheumatoid arthritis, unspecified Plan: Hold Methotrexate 7.5 mg PO weekly (on Fridays), meloxicam 15 mg PO daily (AbidEmily MD R1) Problem List: (1) Intertrochanteric fracture of right hip ICD Codes: S72.141A - Displaced intertrochanteric fracture of right femur, initial encounter for closed fracture Status: Acute Plan: Per XR Consult Orthopedics NPO except PO meds NS IVF @125 mls/hr Tylenol 650 mg PO Q6H for pain 1-2 PRN Percocet 5-325 mg PO Q6H PRN pain 3-5 Percocet 10-325 mg PO Q6H PRN pain 6-10 IV morphin 4 mg q2H breakthrough pain PRN dulcolex scheduled BID and constipation meds prn pulse ox SCDs bed rest ice pack q8x to site of pain/inflammation (2) Fracture of superior ramus of right pubis ICD Codes: S32.511A - Fracture of superior rim of right pubis, initial encounter for closed fracture Status: Acute Plan: Per XR See above plan (3) Hypokalemia ICD Codes: E87.6 - Hypokalemia Plan: K+ 3.1 on admission Received 20 meq K+ in IVF Provide 20 meq KCl PO Recheck BMP this AM (4) HTN (hypertension) ICD Codes: I10 - Essential (primary) hypertension Status: Chronic Plan: Con't home lisinopril 20 mg daily (5) HLD (hyperlipidemia) ICD Codes: E78.5 - Hyperlipidemia, unspecified Status: Chronic Plan: hold rosuvastatin 10 mg PO HS and ASA 81 mg chew (6) Anxiety ICD Codes: F41.9 - Anxiety disorder, unspecified Status: Chronic Plan: con't home duloxetine 30 mg BID, clonazepam 0.5 mg PO BID PRN anxiety (7) Restless leg syndrome ICD Codes: G25.81 - Restless legs syndrome Status: Chronic Plan: con't 0.25 mg pramipexole PO daily (8) Anemia ICD Codes: D64.9 - Anemia, unspecified Plan: Normocytic Monitor via daily CBC Transfuse if hgb <7 (9) Rheumatoid arthritis ICD Codes: M06.9 - Rheumatoid arthritis, unspecified Plan: Hold Methotrexate 7.5 mg PO weekly (on Fridays), meloxicam 15 mg PO daily (Albert Lagunas MD) Physician Certification 2 Midnight Certification Type: Admission for Inpatient Services Order for Inpatient Services The services are ordered in accordance with Medicare regulations or non- Medicare payer requirements, as applicable. In the case of services not specified as inpatient-only, they are appropriately provided as inpatient services in accordance with the 2-midnight benchmark. Estimated LOS (days): 2 2 days is the estimated time the patient will need to remain in the hospital, assuming treatment plan goals are met and no additional complications. Post-Hospital Plan: Not yet determined (Emily Lawrence MD R1) Problem Qualifiers (1) Anemia: Qualified Codes: D64.9 - Anemia, unspecified Emily Lawrence MD R1 July 05, 2017:58 Albert Lagunas MD July 05, 2017 11:46
[2017-07-05] MEDS ORDERED: NS + KCL 20 MEQ INJ 1,000 ML IV SCH (03:00)
[2017-07-05] MEDS ORDERED: clonazePAM 0.5 MG TAB PO PRN (03:45)
[2017-07-05] MEDS ORDERED: oxyCODONE/ACETAMINOPHEN 5 MG/325 MG TAB PO PRN (04:00)
[2017-07-05] MEDS ORDERED: BISACODYL 10 MG SUPP RECTAL PRN (04:00)
[2017-07-05] MEDS ORDERED: NALOXONE HCL 0.4 MG/ML AMP IV PUSH PRN (04:00)
[2017-07-05] MEDS ORDERED: MAGNESIUM HYDROXIDE SUSP 30 ML CUP PO PRN (04:00)
[2017-07-05] MEDS ORDERED: MORPHINE SULFATE 4 MG/ML INJ IV PUSH PRN (04:00)
[2017-07-05] MEDS ORDERED: SODIUM CHLORIDE 0.9% FLUSH 10 ML FLUSH IV FLUSH PRN ×2 (04:00→18:15)
[2017-07-05] MEDS ORDERED: ACETAMINOPHEN 325 MG TAB PO PRN (04:00)
[2017-07-05] MEDS ORDERED: ONDANSETRON HCL 4 MG/2 ML VIAL IVP PRN (04:00)
[2017-07-05] MEDS ORDERED: LACTULOSE SYRUP 20 GM/30 ML CUP PO PRN (04:00)
[2017-07-05] MEDS ORDERED: SENNOSIDES 8.6 MG TAB PO PRN (04:00)
[2017-07-05] MEDS ORDERED: POTASSIUM CHLORIDE 20 MEQ CONTROLLED RELEASE TAB PO ONE ×2 (04:30→08:45)
[2017-07-05] MEDS: SODIUM CHLOR 0.9% 1000 ML INJ 1,000 ML IV SCH ×2 (05:41→18:34)
[2017-07-05 06:02] LABS: AUTOMATED NEUTROPHIL # 7.9 TH/MM3 (1.8-7.7); BASOPHIL % 0.3 % (0.0-2.0); EOSINOPHIL % 0.1 % (0.0-4.0); HEMATOCRIT 30.9 % (35.0-46.0); HEMOGLOBIN 10.1 GM/DL (11.6-15.3); LYMPH % 8.8 % (9.0-44.0); LYMPHOCYTE # 0.8 TH/MM3 (1.0-4.8); MEAN CELL VOLUME 93.6 FL (80.0-100.0); MEAN CORPUSCULAR HEMOGLOBIN 30.6 PG (27.0-34.0); MEAN CORPUSCULAR HGB CONC 32.7 % (32.0-36.0); MEAN PLATELET VOLUME 8.1 FL (7.0-11.0); MONOCYTE # 0.4 TH/MM3 (0-0.9); NEUT % 86.8 % (16.0-70.0); PLATELET COUNT 171 TH/MM3 (150-450)
[2017-07-05 06:33] LABS: BICARBONATE 28.6 MEQ/L (21.0-32.0); CALCIUM 8.4 MG/DL (8.5-10.1); CREATININE 0.74 MG/DL (0.50-1.00)
--- NOTE | 2017-07-05 08:04 | EKG ---
Date Performed: 07/05/2017 Time Performed: 00:20:22 PTAGE: 82 years EKG: Sinus rhythm NONSPECIFIC ST ABNORMALITY BORDERLINE ECG PREVIOUS TRACING : 02/03/2017 09.57 No significant change from previous tracing noted. DOCTOR: Bird Ghotra Interpretating Date/Time 07/05/2017 08:03:07
[2017-07-05] MEDS ORDERED: SODIUM CHLORID 0.9% 500 ML IV PRN (08:30)
[2017-07-05] MEDS ORDERED: LACTATED RINGER'S 1000 ML IV PRN (08:30)
[2017-07-05] MEDS ORDERED: POVIDONE IODINE 5% (ANTISEPSIS KIT) 4 APPLICATIONS EACH NARE PRN (08:30)
[2017-07-05] MEDS ORDERED: CHLORHEXIDINE GLUCONATE 2 % 1 PACK (2 CLOTHS) TOPICAL PRN (08:30)
[2017-07-05] MEDS ORDERED: METOPROLOL TARTRATE 25 MG TAB PO PRN (08:30)
[2017-07-05] MEDS ORDERED: cloNIDine HCL 0.1 MG TAB PO PRN (09:00)
[2017-07-05] MEDS ORDERED: hydrALAZINE HCL 20 MG/ML VIAL IV PUSH PRN (09:00)
[2017-07-05] MEDS ORDERED: MELOXICAM 15 MG TAB PO SCH (09:00)
[2017-07-05] MEDS: oxyCODONE/ACETAMINOPHEN 10 MG/325 MG TAB PO PRN ×2 (09:48→13:48)
[2017-07-05] MEDS: DULoxetine HCl DR 30 MG CAP PO SCH ×2 (09:50→21:54)
[2017-07-05] MEDS: LISINOPRIL 20 MG TAB PO SCH (09:50)
[2017-07-05] MEDS: PRAMIPEXOLE DIHYDROCHLORIDE 0.25 MG TAB PO SCH (09:50)
[2017-07-05] MEDS: SODIUM CHLORIDE 0.9% FLUSH 10 ML FLUSH IV FLUSH SCH ×3 (09:50→21:00)
[2017-07-05] MEDS: DOCUSATE SODIUM 50 MG/SENNA 8.6 MG TAB PO SCH ×2 (09:51→21:54)
--- NOTE | 2017-07-05 10:32 | PD.CONS ---
HPI Service Orthopedic Surgeons Consult Requested By Reason for Consult Right intertrochanteric femur fracture Primary Care Physician Unknown Admission Diagnosis Right hip fracture Diagnoses: Chief Complaint: Right hip pain History of Present Illness 82-year-old female who presents to the ER after a mechanical trip and fall. Patient complains of acute onset right hip pain and inability to ambulate. Patient denies any head trauma or loss of consciousness. She denies any numbness or tingling. She denies any other extremity injury. Of note, patient did have lumbar decompression surgery with Dr. Padilla approximately 6 months ago and a recent history of a pelvis fracture which has been treated nonoperatively. Review of Systems Constitutional: DENIES: Fever Endocrine: DENIES: Heat/cold intolerance Eyes: DENIES: Blurred vision Ears, nose, mouth, throat: DENIES: Throat pain Respiratory: DENIES: Cough Cardiovascular: DENIES: Chest pain Gastrointestinal: DENIES: Abdominal pain Genitourinary: DENIES: Urinary incontinence Musculoskeletal: COMPLAINS OF: Joint pain, Muscle aches, Joint Swelling Integumentary: DENIES: Rash Hematologic/lymphatic: DENIES: Bruising Immunologic/allergic: DENIES: Eczema Neurologic: DENIES: Abnormal gait Psychiatric: DENIES: Anxiety Past Family Social History Past Medical History Rheumatoid arthritis, GERD, chronic low back pain Past Surgical History Lumbar decompression 6 months ago, partial hysterectomy Reported Medications See chart for full list. Denies blood thinners Allergies: Coded Allergies: No Known Allergies (Verified Adverse Reaction, Unknown, 07/05/17) Active Ordered Medications Current Medications Medications (Trade) Dose Ordered Sig/Mehreen Route Start Time Stop Time Status Last Admin (KlonoPIN) 0.5 mg BID PRN PO 07/05/17 03:45 (Prinivil) 20 mg DAILY PO 07/05/17 09:00 07/05/17 09:50 (Mobic) 15 mg DAILY PO 07/05/17 09:00 Future Hold (Mirapex) 0.25 mg DAILY PO 07/05/17 09:00 07/05/17 09:50 (Cymbalta Dr) 30 mg BID PO 07/05/17 09:00 07/05/17 09:50 Sodium Chloride 1,000 ml @ 125 mls/hr Q8H IV 07/05/17 03:54 07/05/17 05:41 (NS Flush) 2 ml UNSCH PRN IV FLUSH 07/05/17 04:00 (NS Flush) 2 ml BID IV FLUSH 07/05/17 09:00 (Zofran Inj) 4 mg Q6H PRN IVP 07/05/17 04:00 (Leigh-Colace) 1 tab BID PO 07/05/17 09:00 07/05/17 09:51 (Milk Of Magnesia Liq) 30 ml Q12H PRN PO 07/05/17 04:00 (Senokot) 17.2 mg Q12H PRN PO 07/05/17 04:00 (Dulcolax Supp) 10 mg DAILY PRN RECTAL 07/05/17 04:00 (Lactulose Liq) 30 ml DAILY PRN PO 07/05/17 04:00 (Tylenol) 650 mg Q6H PRN PO 07/05/17 04:00 (Percocet 5-325 Mg) 1 tab Q6H PRN PO 07/05/17 04:00 (Percocet 10-325 Mg) 1 tab Q6H PRN PO 07/05/17 04:00 07/05/17 09:48 (Morphine Inj) 4 mg Q2H PRN IV PUSH 07/05/17 04:00 (Narcan Inj) 0.4 mg UNSCH PRN IV PUSH 07/05/17 04:00 Lactated Ringer's 1,000 ml @ 30 mls/hr Q24H PRN IV 07/05/17 08:30 07/08/17 08:29 Sodium Chloride 500 ml @ 30 mls/hr [id number] PRN IV 07/05/17 08:30 07/08/17 08:29 (Lopressor) 25 mg LIGHT BULB ASSEMBLER PRN PO 07/05/17 08:30 07/08/17 08:29 (Betadine 5% Antisepsis Kit) 1 applic LIGHT BULB ASSEMBLER PRN EACH NARE 07/05/17 08:30 07/08/17 08:29 (Chlorhexidine 2% Cloth) 3 pack LIGHT BULB ASSEMBLER PRN TOPICAL 07/05/17 08:30 5/31/18 08:29 (Apresoline Inj) 10 mg Q6H PRN IV PUSH 07/05/17 09:00 (Catapres) 0.1 mg Q6H PRN PO 07/05/17 09:00 Reported Meds & Active Scripts Active Percocet (Oxycodone-Acetaminophen) 5-325 mg Tab 1 Tab PO Q6H PRN Hydrocodone-Acetamin 10-325 mg (Hydrocodone/Acetaminophen) 10 Mg-325 Mg Tablet 1 Tab PO Q6HR PRN Reported Fish Oil + D3 (Fish Oil-Cholecalciferol) 1,200-1,000 Mg-Unit Cap 1 Cap PO DAILY Aspirin Low Dose (Aspirin) 81 Mg Chew 81 Mg CHEW DAILY Meloxicam 15 Mg Tab 15 Mg PO DAILY Rosuvastatin (Rosuvastatin Calcium) 10 Mg Tab 10 Mg PO HS Duloxetine DR (Duloxetine HCl) 30 Mg Capdr 30 PO BID Folic Acid 400 Mcg Tab Unknown Dose PO DAILY Sumatriptan (Sumatriptan Succinate) 100 Mg Tab 100 Mg PO ONCE PRN If a satisfactory response has not been obtained at 2 hours, a second dose may be administered Pramipexole (Pramipexole Dihydrochloride) 0.25 Mg Tab 0.25 Mg PO DAILY Methotrexate 2.5 Mg Tab 7.5 Mg PO Q7D Clonazepam 0.5 Mg Tab 0.5 Mg PO BID PRN Lisinopril 20 Mg Tab 20 Mg PO DAILY Family History Noncontributory Social History Denies tobacco or alcohol use Physical Exam Vital Signs Vital Signs Date Time Temp Pulse Resp B/P (MAP) Pulse Ox O2 Delivery O2 Flow Rate FiO2 07/05/17 08:00 97.8 76 18 170/81 (110) 98 07/05/17 06:45 07/05/17 06:00 90 16 181/84 (116) 98 Nasal Cannula 2.00 07/05/17 05:31 20 07/05/17 05:00 86 16 184/81 (115) 97 Nasal Cannula 2.00 07/05/17 04:00 86 16 188/84 (118) 99 Nasal Cannula 2.00 07/05/17 03:05 95 16 161/76 (104) 92 Nasal Cannula 2.00 07/05/17 00:16 18 97 Room Air 07/05/17 00:12 97.8 68 18 149/90 (109) 98 Physical Exam Awake, alert, no acute distress Normocephalic Pupils equal No JVD Moist mucous membranes Nonlabored respirations Soft nontender abdomen Regular rate Right lower extremity: Positive logroll. Unable to assess hip and knee range of motion due to pain. Patient is neurovascular intact distally with positive EHL, FHL, dorsiflexion and plantar flexion. Negative Homans. Sensation is intact. Brisk cap refill. Bilateral upper extremities and left lower extremity: No significant tenderness palpation of visible deformities. Full active range of motion and strength throughout. Sensation is intact. Brisk cap refill. No rash Normal affect Laboratory Laboratory Tests Test 07/05/17 00:50 07/05/17 05:21 White Blood Count 9.1 9.0 Red Blood Count 3.32 3.30 Hemoglobin 10.2 10.1 Hematocrit 30.6 30.9 Mean Corpuscular Volume 92.1 93.6 Mean Corpuscular Hemoglobin 30.6 30.6 Mean Corpuscular Hemoglobin Concent 33.2 32.7 Red Cell Distribution Width 15.2 15.0 Platelet Count 197 171 Mean Platelet Volume 8.5 8.1 Neutrophils (%) (Auto) 77.9 86.8 Lymphocytes (%) (Auto) 17.3 8.8 Monocytes (%) (Auto) 4.3 4.0 Eosinophils (%) (Auto) 0.2 0.1 Basophils (%) (Auto) 0.3 0.3 Neutrophils # (Auto) 7.1 7.9 Lymphocytes # (Auto) 1.6 0.8 Monocytes # (Auto) 0.4 0.4 Eosinophils # (Auto) 0.0 0.0 Basophils # (Auto) 0.0 0.0 CBC Comment DIFF FINAL DIFF FINAL Differential Comment Prothrombin Time 10.9 Prothromb Time International Ratio 1.1 Activated Partial Thromboplast Time 34.2 Blood Urea Nitrogen 15 16 Creatinine 0.92 0.74 Random Glucose 113 128 Total Protein 6.7 Albumin 3.5 Calcium Level 8.1 8.4 Magnesium Level 1.8 Alkaline Phosphatase 129 Aspartate Amino Transf (AST/SGOT) 25 Alanine Aminotransferase (ALT/SGPT) 22 Total Bilirubin 0.3 Sodium Level 143 145 Potassium Level 3.1 3.4 Chloride Level 108 108 Carbon Dioxide Level 26.7 28.6 Anion Gap 8 8 Estimat Glomerular Filtration Rate 59 76 Total Creatine Kinase 105 Creatine Kinase MB 3.4 Troponin I LESS THAN 0.02 25-Hydroxy Vitamin D Total 17.8 Result Diagram: 07/05/1752007/05/17520 Imaging Last 48 hours Impressions Hip and Pelvis X-Ray 07/05/1734 Signed Impressions: CONCLUSION: Intertrochanteric fracture on the right and there are also fractures of the rig ht symphysis pubis and possibly superior pubic ramus as well. Femur X-Ray 07/05/1734 Signed Impressions: CONCLUSION: Intertrochanteric fracture on the right. Chest X-Ray 07/05/1734 Signed Impressions: CONCLUSION: No acute cardiopulmonary disease. Assessment & Plan Assessment and Plan 82-year-old female with closed right intertrochanteric femur fracture, along with likely subacute pubic symphysis fractures Options of management were discussed with the patient. Recommendation for surgical intervention in the form of intramedullary nail of her right intertrochanteric femur fracture. Risks of surgery including but not limited to : Infection, nonunion or malunion, hardware malposition or failure, neurovascular injury, persistent hip pain and/or stiffness, possible need for further surgery, and other unforeseen comp occasions were all discussed with the patient. At this time she has consented to the procedure. She is n.p.o. for surgery later today. Postoperative course was discussed with the patient. She will likely be partial weightbearing 50% postoperatively. I did explain to the patient that these fractures typically take approximately 3 months to fully heal. In regards to her pelvis fracture, I discussed with the patient most often these types of injuries do not require surgical intervention. These do appear relatively subacute on these images. I would not recommend any further treatment other than nonoperative treatment. These are on the same side as her right hip fracture and therefore she will already be partial weightbearing as a result of her intertrochanteric femur fracture. Heidy Deleon MD July 05, 2017 10:31
[2017-07-05] MEDS ORDERED: LACTATED RINGER'S 1000 ML INJ 1,000 ML IV ONE (12:00)
[2017-07-05] MEDS ORDERED: ONDANSETRON HCL 4 MG/2 ML VIAL IV PUSH ONE (12:00)
[2017-07-05] MEDS ORDERED: DEXAMETHASONE SOD PHOS 4 MG/ML VIAL IV ONE (12:00)
[2017-07-05] MEDS ORDERED: ceFAZolin INJ 1,000 MG VIAL IV ONE ×2 (12:00→17:05)
[2017-07-05] MEDS ORDERED: SODIUM CHLOR 0.9% 250 ML INJ 250 ML IV ONE (12:00)
[2017-07-05] MEDS ORDERED: LIDOCAINE HCL 1% PF 5 ML SYRINGE OTHER ONE (12:00)
[2017-07-05] MEDS ORDERED: PROPOFOL 200 MG/20 ML AMP IV ONE (12:00)
[2017-07-05] MEDS ORDERED: PHENYLEPH/NS 1000 MCG/10 ML SYR IV ONE (12:00)
[2017-07-05] MEDS ORDERED: ePHEDrine/NS 25 MG/5 ML SYRINGE IV ONE (12:00)
[2017-07-05] MEDS ORDERED: ACETAMINOPHEN 1000 MG/100 ML 100 ML IV ONE (16:43)
[2017-07-05] MEDS ORDERED: VANCOMYCIN HCL 1000 MG VIAL ONE (17:09)
--- NOTE | 2017-07-05 18:05 | PD.OP ---
cc: Heidy Deleon MD Operative Report Date of Surgery: July 05, 2017 Preoperative Diagnosis: Closed right intertrochanteric femur fracture Postoperative Diagnosis: Same Procedure: Intramedullary nail right intertrochanteric femur fracture Anesthesia: General Surgeon: Heidy Deleon Dental Sales Representative(s): Renny Valdes Operation and Findings: EBL: 75 cc Complications: None Indications: None Indications for procedure: Patient is an 82-year-old female who presented after a mechanical trip and fall with acute onset of right hip pain and inability to ambulate. Patient was found to have a closed right intertrochanteric femur fracture. Recommendation for intramedullary nail of her right intertrochanteric femur fracture. Risks of surgery including but not limited to : Infection, nonunion or malunion, hardware malposition or failure, neurovascular injury, possible need for further surgery, persistent hip pain, weakness and/or stiffness, and other unforeseen complications were all discussed with the patient. At this time she has consented to the above- mentioned procedure. Description of procedure: Patient was brought back to the operating room and general anesthesia then ensued. Patient was then carefully positioned supine on the operating room table with all bony prominences well-padded. Patient was then prepped and draped in standard sterile fashion. Preoperative antibiotics were given within 1 hour of incision. A timeout was performed to identify the correct patient, side, site and procedure to be performed. The fracture was then reduced with use of traction and rotation on the fracture table. A small 1 -1/2-2 inch incision was made just proximal and posterior to the greater trochanter. Sharp dissection was made through his obtain his tissue and fascia down to bone. A guidewire was then placed in the tip of the greater trochanter and advanced to the lesser trochanteric region on both AP and lateral radiographs. An opening reamer was then used to allow access to the femoral canal and advanced to the lesser trochanteric region. A Synthes TFN intermediate length nail was then placed into the greater trochanter and advanced into the femur with the fracture held reduced. This was verified on both AP and lateral radiographs. The nail was advanced to appropriate position on AP and lateral radiographs. A lateral targeting guide was then placed in a small lateral incision was made through the skin and subcutaneous tissue and fascia to allow the targeting guide to be placed down to bone. A guidewire was placed into the femoral neck and head in a center center position on AP and lateral radiographs. This was subsequently measured, drilled and 100 mm length proximal blade was advanced into appropriate position into the center center position in the femoral head on AP and lateral radiographs. The proximal locking screw was tightened down and backed off a half of turn to allow for appropriate compression. A triple sleeve guide was then placed through the insertion handle and jig for the distal locking screw. A lateral based incision again was made and this guide was placed down to the lateral aspect of the femur. This was subsequently drilled, measured and appropriate length distal locking screw placed. The insertion handle was then removed. Final radiographs were obtained which demonstrate the fracture was well reduced and hardware was in good position on both AP and lateral radiographs. The incisions were thoroughly irrigated with normal saline laden with gentamicin. The deep tissue was closed with #1 Vicryl sutures in the subcutaneous tissue with 2-0 Vicryl sutures. The skin was closed with gokul and sterile dressings were applied. Patient was then carefully taken off of the operating room table and placed supine on her hospital bed. She was then awoken from general anesthesia without complication. Disposition: Patient will be partial weightbearing to the right lower extremity 50%. Heidy Deleon MD July 05, 2017 18:05
[2017-07-05] MEDS ORDERED: Post-op Orders (for Pharmacy) XX ONE (18:15)
[2017-07-05] MEDS ORDERED: *morphine SULFATE 10 MG/ML PERIprocedure ONLY ONE ×2 (18:29→18:37)
[2017-07-05] MEDS ORDERED: ENOXAPARIN SODIUM 40 MG/0.4 ML SYRINGE SQ SCH (18:30)
[2017-07-05] MEDS ORDERED: DO NOT ADM ANY ANTICOAGULANT DRUGS PRN (19:00)
[2017-07-05] MEDS ORDERED: ATORVASTATIN 20 MG TAB PO SCH (21:00)
--- NOTE | 2017-07-05 22:30 | RADRPT ---
EXAM DATE: 07/05/2017 6:06 PM EDT AGE/SEX: 82 years / Female INDICATIONS: ORIF right hip fracture. CLINICAL DATA: This is the patient's subsequent encounter. Patient reports that signs and symptoms h ave been present for 1 day and indicates a pain score of Nonresponsive. MEDICAL/SURGICAL HISTORY: . Unobtainable. . Unobtainable. COMPARISON: [facility] – [place], FEMUR RIGHT (AP & LAT/2VWS), 07/05/2017. . FINDINGS: There is mario and screw fixation across an intertrochanteric fracture. No complications identified. CONCLUSION: Fixation right femur Electronically signed by: Murali Ramos MD 07/05/2017 10:29 PM EDT
[2017-07-06] MEDS: SODIUM CHLOR 0.9% 1000 ML INJ 1,000 ML IV SCH ×2 (02:32→03:54)
[2017-07-06 03:43] VITALS: BP 127/60; PULSE 86; RESP 17; TEMP 97.3; O2SAT 100
[2017-07-06 04:14] LABS: HEMATOCRIT 25.7 % (35.0-46.0); HEMOGLOBIN 8.6 GM/DL (11.6-15.3); MEAN CELL VOLUME 93.2 FL (80.0-100.0); MEAN CORPUSCULAR HGB CONC 33.2 % (32.0-36.0); MEAN PLATELET VOLUME 8.1 FL (7.0-11.0); PLATELET COUNT 134 TH/MM3 (150-450); RED BLOOD COUNT 2.76 MIL/MM3 (4.00-5.30); RED CELL DISTRIBUTION WIDTH 14.7 % (11.6-17.2); WHITE BLOOD COUNT 5.5 TH/MM3 (4.0-11.0)
[2017-07-06 04:45] LABS: CALCIUM 7.6 MG/DL (8.5-10.1); CREATININE 0.74 MG/DL (0.50-1.00)
[2017-07-06] MEDS ORDERED: ENOXAPARIN SODIUM 40 MG/0.4 ML SYRINGE SQ SCH (06:30)
--- NOTE | 2017-07-06 07:05 | PD.ORT.PN ---
Subjective Subjective Remarks Patient resting comfortably this morning. States her pain is well controlled. Objective Vitals Vital Signs Date Time Temp Pulse Resp B/P (MAP) Pulse Ox O2 Delivery O2 Flow Rate FiO2 07/06/17 03:43 97.3 86 17 127/60 (82) 100 07/05/17 23:34 97.8 102 17 115/58 (77) 96 07/05/17 22:00 95 Nasal Cannula 4.00 07/05/17 19:27 97.7 100 17 128/65 (86) 94 07/05/17 19:15 95 15 133/62 (85) 96 Nasal Cannula 4 07/05/17 19:00 98.1 97 15 129/64 (85) 95 Nasal Cannula 4 07/05/17 18:45 98 15 136/66 (89) 94 Nasal Cannula 4 07/05/17 18:30 98 15 149/71 (97) 96 Nasal Cannula 4 07/05/17 18:16 98.3 100 18 151/70 (97) 99 Nasal Cannula 4 07/05/17 16:10 98.8 87 18 139/63 (88) 94 07/05/17 12:00 98.1 87 17 155/71 (99) 95 07/05/17 08:00 97.8 76 18 170/81 (110) 98 I/O 07/05/17 07/05/17 07/05/17 07/06/17 07/06/17 07/06/17 07:00 15:00 23:00 07:00 15:00 23:00 Intake Total 750 ml 1580 ml Output Total 225 ml 750 ml Balance 525 ml 830 ml Intake Oral 480 ml IV Total 1100 ml Other 750 ml Output Urine Total 150 ml 750 ml Estimated Blood Loss 75 ml # Bowel Movements 0 Result Diagram: 07/06/17 0350 07/06/17 0350 Objective Remarks Awake, alert, no acute distress Right lower extremity: Dressings in place without any significant drainage. Minimal swelling about the thigh. Negative Homans. Patient is neurovascularly intact distally. Brisk cap refill. Assessment & Plan Assessment and Plan 82-year-old female with closed right intertrochanteric femur fracture, along with likely subacute pubic symphysis fractures, POD#1 s/p IMN R intertrochanteric fracture 1. Partial weightbearing 50% right lower extremity 2. PT for mobilization 3. Lovenox for DVT prophylaxis. 4. Patient will likely require rehab placement Heidy Deleon MD July 06, 2017 07:05
[2017-07-06] MEDS ORDERED: OXYC1TAB63 PO (07:06)
[2017-07-06 08:00] VITALS: BP 143/63; PULSE 85; RESP 20; TEMP 98.6; O2SAT 99
[2017-07-06] MEDS: DOCUSATE SODIUM 50 MG/SENNA 8.6 MG TAB PO SCH (08:08)
[2017-07-06] MEDS: LISINOPRIL 20 MG TAB PO SCH (08:08)
[2017-07-06] MEDS: PRAMIPEXOLE DIHYDROCHLORIDE 0.25 MG TAB PO SCH (08:08)
[2017-07-06] MEDS: DULoxetine HCl DR 30 MG CAP PO SCH (08:09)
[2017-07-06] MEDS: SODIUM CHLORIDE 0.9% FLUSH 10 ML FLUSH IV FLUSH SCH ×2 (08:10)
[2017-07-06] MEDS: oxyCODONE/ACETAMINOPHEN 10 MG/325 MG TAB PO PRN ×2 (08:16→15:36)
[2017-07-06 08:40] VITALS: O2SAT 99
--- NOTE | 2017-07-06 09:10 | HHI.FPPN ---
Subjective Remarks No acute events overnight. Pt resting comfortably in bed. at bedside. Pt is tolerating full liquid diet, will transition to regular heart healthy diet. Currently on 3L NC, wean as tolerated. Pt states that she is passing gas, no BM yet. Ashley catheter removed post surgery, has not urinated yet. She states that she has some soreness in her right leg, due to post surgery. Able to wiggle toes, pedal pulses intact. Interested in going to [facility] for rehab. (Reina Nguyen MD R1) Objective Vitals Vital Signs Date Time Temp Pulse Resp B/P (MAP) Pulse Ox O2 Delivery O2 Flow Rate FiO2 07/06/17 08:40 99 Nasal Cannula 4.00 07/06/17 08:00 98.6 85 20 143/63 (89) 99 07/06/17 03:43 97.3 86 17 127/60 (82) 100 07/05/17 23:34 97.8 102 17 115/58 (77) 96 07/05/17 22:00 95 Nasal Cannula 4.00 07/05/17 19:27 97.7 100 17 128/65 (86) 94 07/05/17 19:15 95 15 133/62 (85) 96 Nasal Cannula 4 07/05/17 19:00 98.1 97 15 129/64 (85) 95 Nasal Cannula 4 07/05/17 18:45 98 15 136/66 (89) 94 Nasal Cannula 4 07/05/17 18:30 98 15 149/71 (97) 96 Nasal Cannula 4 07/05/17 18:16 98.3 100 18 151/70 (97) 99 Nasal Cannula 4 07/05/17 16:10 98.8 87 18 139/63 (88) 94 07/05/17 12:00 98.1 87 17 155/71 (99) 95 I/O 07/05/17 07/05/17 07/05/17 07/06/17 07/06/17 07/06/17 07:00 15:00 23:00 07:00 15:00 23:00 Intake Total 750 ml 1580 ml Output Total 225 ml 750 ml Balance 525 ml 830 ml Intake Oral 480 ml IV Total 1100 ml Other 750 ml Output Urine Total 150 ml 750 ml Estimated Blood Loss 75 ml # Bowel Movements 0 (Reina Nguyen MD R1) Result Diagram: 07/06/17 03507/06/17 035 Objective Remarks GENERAL: This is a pleasant, elderly lady resting flat in bed, in no acute distress. SKIN: Cool and dry. CARDIOVASCULAR: Regular rate and rhythm without murmurs, gallops, or rubs. RESPIRATORY: Clear to auscultation. Breath sounds equal bilaterally. No wheezes , rales, or rhonchi. GASTROINTESTINAL: Abdomen soft, non-tender, nondistended. No hepato-splenomegaly , or palpable masses. No guarding. MUSCULOSKELETAL: Extremities without clubbing, cyanosis, or edema. No calf tenderness. Right hip surgical incision site covered with bandage. Pedal pulses intact. Able to wiggle all toes. No calf tenderness. NEUROLOGICAL: Awake and alert. Oriented x3. (Reina Nguyen MD R1) A/P Assessment and Plan 82 y/o F admitted for R hip fracture due to mechanical fall. Ortho consulted. POD#1 intramedullary nail R intertrochanteric femur fracture. Discharge Planning ortho cleared for discharge Patient requesting to go to [facility] for rehab, will work with CM Anticipate discharge today (Reina Nguyen MD R1) Attending Attestation Patient examined independently and case discussed with resident physicians I have read the above note and agree with the assessment/plan as discussed with me I was involved in all medical decision making for this patient Albert Lagunas MD (Albert Lagunas MD) Problem List: (1) Intertrochanteric fracture of right hip ICD Codes: S72.141A - Displaced intertrochanteric fracture of right femur, initial encounter for closed fracture Status: Acute Plan: POD#1 intramedullary nail R intertrochanteric femur fracture. Ortho cleared for discharge, F/U with ortho in 2 weeks -partial weightbearing 50% right lower extremity -PT for mobilization -Lovenox for DVT ppx, pt states that she cannot take anticoagulants due to some underlying AVM or aneurysm? Discussed with patient she is at high risk for DVT/PE w/o blood thinner. -rehab placement at [facility] Tylenol 650 mg PO Q6H for pain 1-2 PRN Percocet 5-325 mg PO Q6H PRN pain 3-5 Percocet 10-325 mg PO Q6H PRN pain 6-10 IV morphin 4 mg q2H breakthrough pain PRN dulcolex scheduled BID and constipation meds prn (2) Fracture of superior ramus of right pubis ICD Codes: S32.511A - Fracture of superior rim of right pubis, initial encounter for closed fracture Status: Acute Plan: Nonoperative treatment (3) Hypokalemia ICD Codes: E87.6 - Hypokalemia Status: Resolved Plan: K+ 3.1 on admission Resolved Replace orally as needed (4) HTN (hypertension) ICD Codes: I10 - Essential (primary) hypertension Status: Chronic Plan: Con't home lisinopril 20 mg daily (5) HLD (hyperlipidemia) ICD Codes: E78.5 - Hyperlipidemia, unspecified Status: Chronic Plan: hold rosuvastatin 10 mg PO HS and ASA 81 mg chew Continue upon discharge (6) Anxiety ICD Codes: F41.9 - Anxiety disorder, unspecified Status: Chronic Plan: con't home duloxetine 30 mg BID, clonazepam 0.5 mg PO BID PRN anxiety (7) Restless leg syndrome ICD Codes: G25.81 - Restless legs syndrome Status: Chronic Plan: con't 0.25 mg pramipexole PO daily (8) Anemia ICD Codes: D64.9 - Anemia, unspecified Plan: Normocytic Monitor via daily CBC Transfuse if hgb <7 (9) Rheumatoid arthritis ICD Codes: M06.9 - Rheumatoid arthritis, unspecified Plan: Hold Methotrexate 7.5 mg PO weekly (on Fridays), meloxicam 15 mg PO daily Continue upon discharge (10) Nutrition, metabolism, and development symptoms ICD Codes: R63.8 - Other symptoms and signs concerning food and fluid intake Plan: Diet: progress to heart healthy diet Fluids: PO hydration vitals q4h, monitor I & Os DVT ppx: Lovenox 40m g Sq daily, SCDs (Reina Nguyen MD R1) Problem Qualifiers (1) Anemia: Qualified Codes: D64.9 - Anemia, unspecified Reina Nguyen MD R1 July 06, 2017 09:10 Albert Lagunas MD July 06, 2017 13:01
[2017-07-06 12:00] VITALS: BP 128/61; PULSE 93; RESP 18; TEMP 98.2; O2SAT 96
--- NOTE | 2017-07-06 14:14 | HHI.DCPOC ---
Discharge Care Plan Diagnosis: (1) Intertrochanteric fracture of right hip Goals to Promote Your Health * To prevent worsening of your condition and complications * To maintain your health at the optimal level Directions to Meet Your Goals Take your medications as prescribed Follow your dietary instruction Follow activity as directed Keep your appointments as scheduled Take your immunizations and boosters as scheduled If your symptoms worsen call your PCP, if no PCP go to Urgent Care Center or Emergency Room Smoking is Dangerous to Your Health. Avoid second hand smoke Call the 24-hour hour crisis hotline for domestic abuse at Reina Nguyen MD R1 July 06, 2017 14:14
[2017-07-06] MEDS ORDERED: XARE10TA PO (14:49)
--- NOTE | 2017-07-06 14:50 | HHI.DS ---
Discharge Summary Admission Date July 05, 2017 at 02:57 Admitting Diagnosis Right hip fracture (1) Intertrochanteric fracture of right hip Plan: POD#1 intramedullary nail R intertrochanteric femur fracture. Ortho cleared for discharge, F/U with ortho in 2 weeks -partial weightbearing 50% right lower extremity -PT for mobilization -Lovenox for DVT ppx, pt states that she cannot take anticoagulants due to some underlying AVM or aneurysm? Discussed with patient she is at high risk for DVT/PE w/o blood thinner. -[facility]hab placement at [facility] Tylenol 650 mg PO Q6H for pain 1-2 PRN Percocet 5-325 mg PO Q6H PRN pain 3-5 Percocet 10-325 mg PO Q6H PRN pain 6-10 IV morphin 4 mg q2H breakthrough pain PRN dulcolex scheduled BID and constipation meds prn ICD Codes: S72.141A - Displaced intertrochanteric fracture of right femur, initial encounter for closed fracture Status: Acute (2) Fracture of superior ramus of right pubis Plan: Nonoperative treatment ICD Codes: S32.511A - Fracture of superior rim of right pubis, initial encounter for closed fracture Status: Acute (3) Hypokalemia Plan: K+ 3.1 on admission Resolved Replace orally as needed ICD Codes: E87.6 - Hypokalemia Status: Resolved (4) HTN (hypertension) Plan: Con't home lisinopril 20 mg daily ICD Codes: I10 - Essential (primary) hypertension Status: Chronic (5) HLD (hyperlipidemia) Plan: hold rosuvastatin 10 mg PO HS and ASA 81 mg chew Continue upon discharge ICD Codes: E78.5 - Hyperlipidemia, unspecified Status: Chronic (6) Anxiety Plan: con't home duloxetine 30 mg BID, clonazepam 0.5 mg PO BID PRN anxiety ICD Codes: F41.9 - Anxiety disorder, unspecified Status: Chronic (7) Restless leg syndrome Plan: con't 0.25 mg pramipexole PO daily ICD Codes: G25.81 - Restless legs syndrome Status: Chronic (8) Anemia Plan: Normocytic Monitor via daily CBC Transfuse if hgb <7 ICD Codes: D64.9 - Anemia, unspecified (9) Rheumatoid arthritis Plan: Hold Methotrexate 7.5 mg PO weekly (on Fridays), meloxicam 15 mg PO daily Continue upon discharge ICD Codes: M06.9 - Rheumatoid arthritis, unspecified (10) Nutrition, metabolism, and development symptoms Plan: Diet: progress to heart healthy diet Fluids: PO hydration vitals q4h, monitor I & Os DVT ppx: Lovenox 40m g Sq daily, SCDs ICD Codes: R63.8 - Other symptoms and signs concerning food and fluid intake Brief History 82-year-old female presents to the emergency department with a right intertrochanteric femoral fracture following mechanical fall at home. She states that she was reaching for something in the dark and tripped, falling onto her right hip and knee with immediate pain and inability to bear weight in her right hip and knee. Initial evaluation in the emergency department with x- ray showed an intertrochanteric fracture as well as subacute pelvic rami fractures. She is admitted for pain control and orthopedic evaluation. CBC/BMP: 07/06/17 0350 07/06/17 0350 Significant Findings Laboratory Tests Test 07/05/17 00:50 07/05/17 05:21 07/06/17 03:50 Red Blood Count 3.32 MIL/MM3 (4.00-5.30) 3.30 MIL/MM3 (4.00-5.30) 2.76 MIL/MM3 (4.00-5.30) Hemoglobin 10.2 GM/DL (11.6-15.3) 10.1 GM/DL (11.6-15.3) 8.6 GM/DL (11.6-15.3) Hematocrit 30.6 % (35.0-46.0) 30.9 % (35.0-46.0) 25.7 % (35.0-46.0) Neutrophils (%) (Auto) 77.9 % (16.0-70.0) 86.8 % (16.0-70.0) Activated Partial Thromboplast Time 34.2 SEC (24.3-30.1) Random Glucose 113 MG/DL (74-106) 128 MG/DL (74-106) 162 MG/DL (74-106) Calcium Level 8.1 MG/DL (8.5-10.1) 8.4 MG/DL (8.5-10.1) 7.6 MG/DL (8.5-10.1) Alkaline Phosphatase 129 U/L (45-117) Potassium Level 3.1 MEQ/L (3.5-5.1) 3.4 MEQ/L (3.5-5.1) Chloride Level 108 MEQ/L (98-107) 108 MEQ/L (98-107) 110 MEQ/L (98-107) Estimat Glomerular Filtration Rate 59 ML/MIN (>89) 76 ML/MIN (>89) 76 ML/MIN (>89) Troponin I LESS THAN 0.02 NG/ML Lymphocytes (%) (Auto) 8.8 % (9.0-44.0) Neutrophils # (Auto) 7.9 TH/MM3 (1.8-7.7) Lymphocytes # (Auto) 0.8 TH/MM3 (1.0-4.8) 25-Hydroxy Vitamin D Total 17.8 ng/ML (30-100) Platelet Count 134 TH/MM3 (150-450) PE at Discharge GENERAL: This is a pleasant, elderly lady resting flat in bed, in no acute distress. SKIN: Cool and dry. CARDIOVASCULAR: Regular rate and rhythm without murmurs, gallops, or rubs. RESPIRATORY: Clear to auscultation. Breath sounds equal bilaterally. No wheezes , rales, or rhonchi. GASTROINTESTINAL: Abdomen soft, non-tender, nondistended. No hepato-splenomegaly , or palpable masses. No guarding. MUSCULOSKELETAL: Extremities without clubbing, cyanosis, or edema. No calf tenderness. Right hip surgical incision site covered with bandage. Pedal pulses intact. Able to wiggle all toes. No calf tenderness. NEUROLOGICAL: Awake and alert. Oriented x3. Reina Nguyen MD R1 July 06, 2017 14:50
[2017-07-06] MEDS ORDERED: COLA100C5 PO (15:08)
[2017-07-06] MEDS ORDERED: RIVAROXABAN 10 MG TAB PO ONE (15:15)
[2017-07-06 16:00] VITALS: BP_SYST 112; BP_SYST 136; BP_DIAS 52; BP_DIAS 63; PULSE 102; RESP 16; TEMP 97.9; O2SAT 96
== END 2017-07-06 16:28 | DRG 482 ==
LOC: NEPE 00:02 → NEDA 02:57 → N06B 06:46
PROVIDERS: ADMIT Family Medicine; ATTEND Family Medicine
PROC: 0QS606Z Reposition Right Upper Femur with Intramedullary Internal Fixation Device, Open Approach (ICD-10-PCS; principal; 2017-07-05 16:59)
DX: S72.141A Displaced intertrochanteric fracture of right femur, initial encounter for closed fracture (principal); D64.9 Anemia, unspecified; M06.9 Rheumatoid arthritis, unspecified; I10 Essential (primary) hypertension; K21.9 Gastro-esophageal reflux disease without esophagitis; K59.09 Other constipation; G25.81 Restless legs syndrome; E78.5 Hyperlipidemia, unspecified; M54.5 Low back pain; G89.29 Other chronic pain; E78.00 Pure hypercholesterolemia, unspecified; E87.6 Hypokalemia; S32.511D Fracture of superior rim of right pubis, subsequent encounter for fracture with routine healing; F32.9 Major depressive disorder, single episode, unspecified; F41.9 Anxiety disorder, unspecified; W01.0XXA Fall on same level from slipping, tripping and stumbling without subsequent striking against object, initial encounter; Y92.003 Bedroom of unspecified non-institutional (private) residence as the place of occurrence of the external cause
CPT/HCPCS: 71045; 73502; 73552; 76000; 80048; 80053; 82306; 82550; 82552; 83735; 84484; 85025; 85027; 85610; 85730; 93005; 94150; 96374; 96375; C1713; J0131; J0690; J1100; J2270; J2370; J2405; J2765; J3010; J3370; J7030; J7050; J7120